=== PATIENT | female | born 1950 | race Caucasian/White ===

== ENCOUNTER → 2016-06-22 | Outpatient (CLI) | payer MEDICARE ==
[2016-06-22 12:51] LABS: Blood Urea Nitrogen 15 mg/dL (7-17); Non-African American GFR(MDRD) >60 (>60 ml/min/1.73 sqM)
== END | disposition home or self-care (01) ==
LOC: LABWHC1 11:25
PROVIDERS: ATTEND Psychiatry & Neurology Neurology
DX: R25.1 Tremor, unspecified (principal)
CPT/HCPCS: 36415; 82565; 84520

== ENCOUNTER → 2016-06-23 | Outpatient (CLI) | payer MEDICARE ==
--- NOTE | 2016-06-23 13:41 | MR ---
MRI of the brain with and without contrast HISTORY: Headaches.T1-weighted sagittal, T2, FLAIR, and diffusion axial, postcontrast T1 axial and co prosper views of the brain are submitted. CONTRAST: 13 mL MultiHance FINDINGS: There is no evidence of acute ischemia. The ventricles, basal cisterns, and sulci overlying the co nvexities are consistent with mild degenerative change.. There is no mass effect or enhancing mass. Craniocervical junction is maintained. Sella turcica has a normal appearance. No evidence of cerebellopontine angle mass.. There is normal e nhancement of the vasculature including the dural venous sinuses. The orbits have a normal appearance. Changes of mild chronic sinusitis noted. Abnormal signal within the tita is noted. Abnormal signal within the nasal ganglia and thalamus sugge stive of tiny lacunar infarctions. Abnormal signal also noted within the external and internal capsul e bilaterally. There is slight irregular morphology of the subcutaneous tissues along the left posterior parietal re gion correlate clinically. May be within the subcutaneous or epidermal structures. Faint enhancement involving the inferior margin of the left frontal lobe as seen on coronal imaging t o be vascular. WHITE MATTER: There is a confluent abnormal signal surrounding the periventricular region. Additionally there are n umerous focal areas of abnormal signal seen throughout the white matter measuring greater than 50. No enhancing lesions. IMPRESSION: 1. No acute intracranial process. 2. Extensive white matter changes which are nonspecific could be seen with extensive remote white mat ter ischemia or demyelinating process. No enhancing lesions. 3. Abnormal signal within the brainstem including the tita suggestive of remote ischemic change. 4. No enhancing mass. 5. There is abnormal signal in the subcutaneous and epidermal structures along the left posterior par ietal region correlate clinically.
== END | disposition home or self-care (01) ==
LOC: RADMRIMAIN 12:37
PROVIDERS: ATTEND Psychiatry & Neurology Neurology
DX: C71.7 Malignant neoplasm of brain stem (principal); R90.82 White matter disease, unspecified; R93.0 Abnormal findings on diagnostic imaging of skull and head, not elsewhere classified
CPT/HCPCS: 70553; A9577

== ENCOUNTER → 2017-01-03 | Outpatient (CLI) | payer MEDICARE ==
--- NOTE | 2017-01-04 09:14 | MM ---
Reason for exam: screening (asymptomatic). Last mammogram was performed 1 year ago. History: Patient is postmenopausal and history of other cancer. Physical Findings: A clinical breast exam by your physician is recommended on an annual basis and results should be correlated with mammographic findings. MG 3D Screening Mammo W/Cad Bilateral CC and MLO view(s) were taken. Prior study comparison: December 31, 2015, bilateral MG 3d screening mammo w/cad. December 03, 2014, bilateral MG screening mammo w CAD. There are scattered fibroglandular densities. No significant changes when compared with prior studies. ASSESSMENT: Benign, BI-RAD 2 RECOMMENDATION: Routine screening mammogram of both breasts in 1 year.
== END | disposition home or self-care (01) ==
LOC: RADMAMWWP 13:09
PROVIDERS: ATTEND Obstetrics & Gynecology
DX: Z12.31 Encounter for screening mammogram for malignant neoplasm of breast (principal)
CPT/HCPCS: 77063; G0202

== ENCOUNTER → 2018-02-11 | Outpatient (CLI) | payer MEDICARE ==
--- NOTE | 2018-02-13 09:34 | MM ---
Reason for exam: screening (asymptomatic). Last mammogram was performed 1 year and 1 month ago. History: Patient is postmenopausal and history of other cancer. Physical Findings: A clinical breast exam by your physician is recommended on an annual basis and results should be correlated with mammographic findings. MG Screening Mammo w CAD Bilateral CC, MLO, and XCCL view(s) were taken. Prior study comparison: January 03, 2017, bilateral MG 3d screening mammo w/cad. December 31, 2015, bilateral MG 3d screening mammo w/cad. No significant changes when compared with prior studies. ASSESSMENT: Benign, BI-RAD 2 RECOMMENDATION: Routine screening mammogram of both breasts in 1 year.
== END | disposition home or self-care (01) ==
LOC: RADMAMWWP 09:41
PROVIDERS: ATTEND Family Medicine
DX: Z12.31 Encounter for screening mammogram for malignant neoplasm of breast (principal)
CPT/HCPCS: 77067

== ENCOUNTER → 2018-05-28 | Outpatient (CLI) | payer MEDICARE ==
--- NOTE | 2018-05-28 13:05 | BD ---
EXAMINATION TYPE: Axial Bone Density DATE OF EXAM: 05/28/2018 COMPARISON: Prior DEXA bone scan March 17, 2016 CLINICAL HISTORY: Postmenopausal female Height: 5 FT 1 IN Weight: 127 FRAX RISK QUESTIONS: History of Fracture in Adulthood: YES Secondary Osteoporosis: Current Tobacco Use: YES RISK FACTORS HISTORY OF: Family History of Osteoporosis: YES Active: YES Postmenopausal woman: AGE 48 Take estrogen and/or progesterone medications: VERY SHORT TIME MEDICATIONS: Additional Medications: ANXIETY MEDS, VIT D, Additional History: EXAM MEASUREMENTS: Bone mineral densitometry was performed using the [employer] System. Bone mineral density as measured about the Lumbar spine is: ----- L1-L4(G/cm2): 0.915 T Score Values are as follows: ----- L2: -2.9 ----- L3: -2.3 ----- L4: -1.0 ----- L1-L4: -2.2 Bone mineral density has: INCREASED 2.0 % since study of: 2015 Bone mineral density about the R hip (g/cm2): 0.781 Bone mineral density about the L hip (g/cm2): 0.754 T Score values are as follows: -----R Neck: -1.8 -----L Neck: -2.0 -----R Total: -1.6 -----L Total: -1.9 Bone mineral density has: DECREASED -5.9 % since study of: 2015 IMPRESSION: Osteopenia (T Score between -2.5 and -1) redemonstrated in low back and both hips. There remains slightly increased risk of fracture and the patient may be considered for treatment. Re-Screen 2-5 years. NOTE: T-SCORE=SD OF THE YOUNG ADULT MEAN.
== END | disposition home or self-care (01) ==
LOC: RADBDWWP 12:35
PROVIDERS: ATTEND Obstetrics & Gynecology
DX: M85.88 Other specified disorders of bone density and structure, other site (principal); M85.852 Other specified disorders of bone density and structure, left thigh; M85.851 Other specified disorders of bone density and structure, right thigh
CPT/HCPCS: 77080

== ENCOUNTER → 2019-02-28 | Outpatient (CLI) | payer MEDICARE ==
--- NOTE | 2019-03-04 09:53 | MM ---
Reason for exam: screening (asymptomatic). Last mammogram was performed 1 year and 1 month ago. History: Patient is postmenopausal and history of other cancer. Physical Findings: A clinical breast exam by your physician is recommended on an annual basis and results should be correlated with mammographic findings. MG 3D Screening Mammo W/Cad Bilateral CC, MLO, and XCCL view(s) were taken. Prior study comparison: February 11, 2018, bilateral MG screening mammo w CAD. January 03, 2017, bilateral MG 3d screening mammo w/cad. There are scattered fibroglandular densities. There are benign appearing round calcifications in the right breast. There is no discrete abnormality. Large overlying skin lesion bilaterally redemonstrated posteriorly. ASSESSMENT: Benign, BI-RAD 2 RECOMMENDATION: Routine screening mammogram of both breasts in 1 year.
== END | disposition home or self-care (01) ==
LOC: RADMAMWWP 10:46
PROVIDERS: ATTEND Family Medicine
DX: Z12.31 Encounter for screening mammogram for malignant neoplasm of breast (principal)
CPT/HCPCS: 77063; 77067

== ENCOUNTER 2019-06-01 11:04 | Inpatient (IN) | payer MEDICARE ==
[2019-06-01] MEDS ORDERED: SODIUM CHLORIDE 0.9% 1,000 ML IV STA (11:49)
[2019-06-01] MEDS ORDERED: PANTOPRAZOLE 40 MG/10 ML VIAL IVP STA (11:49)
[2019-06-01] MEDS ORDERED: DICYCLOMINE 10 MG/ML 2 ML AMP IM STA (11:49)
[2019-06-01] MEDS ORDERED: ONDANSETRON 4 MG/2 ML VIAL IVP STA (11:49)
--- NOTE | 2019-06-01 11:52 | ED ---
Abdominal Pain HPI - General Chief Complaint: Abdominal Pain Stated Complaint: NVD, unable to urinate Time Seen by Provider: 06/01/19 11:19 Source: patient Mode of arrival: ambulatory Limitations: no limitations - History of Present Illness Initial Comments: Patient is a 68-year-old female presenting to the emergency department with a chief complaint of nausea vomiting diarrhea and abdominal pain. Patient reports the symptoms began yesterday initially started with some nausea followed by multiple episodes of nonbilious , nonbloody vomiting. She also reports a little bit of nonbloody diarrhea. She states there is a cramping like pain in the righ t lower quadrant and midline suprapubic region. She reports the pain is not related to oral intake. Patient has a history of cholecystectomy. She does report chills but no fevers. She states that she has been unable to urinate. Denies any urinary or vaginal symptoms. Denies hematuria, hematochezia or melena. Denies chest pain or shortness of breath. - Related Data Home Medications Medication Instructions Recorded Confirmed Biotin 10,000 mcg PO DAILY 06/01/19 06/01/19 Ergocalciferol (Vitamin D2) 50,000 unit PO Q14D 06/01/19 06/01/19 [Drisdol] LORazepam [Ativan] 0.5 mg PO TID PRN 06/01/19 06/01/19 busPIRone HCl [Buspar] 5 mg PO BID 06/01/19 06/01/19 Allergies Allergy/AdvReac Type Severity Reaction Status Date / Time No Known Allergies Allergy Verified 06/01/19 15:07 Review of Systems ROS Statement: Those systems with pertinent positive or pertinent negative responses have been documented in the HPI. ROS Other: All systems not noted in ROS Statement are negative. Past Medical History Past Medical History: No Reported History History of Any Multi-Drug Resistant Organisms: None Reported Past Surgical History: Cholecystectomy, Tubal Ligation Additional Past Surgical History / Comment(s): VOCAL CORD STRIPPING (POLYPS). COLONOSCOPY Past Anesthesia/Blood Transfusion Reactions: Motion Sickness Past Psychological History: Anxiety, Depression Smoking Status: Current every day smoker Past Alcohol Use History: Occasional Past Drug Use History: None Reported - Past Family History Sister(s) Family Medical History: Cancer Additional Family Medical History / Comment(s): THROAT CA Brother(s) Family Medical History: Cancer Additional Family Medical History / Comment(s): LYMPHOMA General Exam Limitations: no limitations General appearance: alert, in no apparent distress Head exam: Present: atraumatic, normocephalic, normal inspection Eye exam: Present: normal appearance, PERRL, EOMI Pupils: Present: normal accommodation ENT exam: Present: normal exam, normal oropharynx, mucous membranes moist, TM's normal bilaterally, normal external ear exam Neck exam: Present: normal inspection, full ROM Respiratory exam: Present: normal lung sounds bilaterally Cardiovascular Exam: Present: regular rate, normal rhythm, normal heart sounds GI/Abdominal exam: Present: soft, tenderness (Right lower quadrant. Positive McBurney point tenderness. Negative Rovsing, negative obturator, negative ps oas. Midline suprapubic tenderness.), normal bowel sounds. Absent: distended, guarding, rebound, rigid Extremities exam: Present: normal inspection, full ROM Back exam: Present: normal inspection, full ROM Neurological exam: Present: alert, oriented X3 Psychiatric exam: Present: normal affect, normal mood Skin exam: Present: warm, dry, intact, normal color, rash (Underlying skin condition on the back.) Course Vital Signs 06/01/19 06/01/19 06/01/19 11:13 13:00 14:30 Temperature 98.1 F Pulse Rate 107 H 98 Respiratory 18 18 18 Rate Blood Pressure 133/64 163/75 173/80 O2 Sat by Pulse 99 100 99 Oximetry Medical Decision Making - Medical Decision Making Patient is a 68-year-old female presenting to emergency Department with a chief complaint of sudden onset of nausea vomiting and abdominal pain. On exam patient has right lower quadrant tenderness with a positive McBurney point. No other signs of appendicitis. CBC shows mild leukocytosis. UA shows ketones most likely due to dehydration from repetitive vomiting. CT of abdomen and pel vis shows a small bowel obstruction secondary to a direct inguinal hernia. Patient was discussed with Dr. Avendano who will admit the patient and go straight to the OR. Patient nothing by mouth. Patient will be admitted. Case discussed with physician. - Lab Data Result diagrams: 06/01/19 12:05 06/01/19 12:05 Lab Results 06/01/19 06/01/19 06/01/19 Range/Units 11:52 12:05 12:05 WBC 12.2 H (3.8-10.6) k/uL RBC 4.66 (3.80-5.40) m/uL Hgb 14.5 (11.4-16.0) gm/dL Hct 43.4 (34.0-46.0) % MCV 93.1 (80.0-100.0) fL MCH 31.1 (25.0-35.0) pg MCHC 33.4 (31.0-37.0) g/dL RDW 12.3 (11.5-15.5) % Plt Count 296 (150-450) k/uL Neutrophils % 80 % Lymphocytes % 15 % Monocytes % 4 % Eosinophils % 0 % Basophils % 0 % Neutrophils # 9.8 H (1.3-7.7) k/uL Lymphocytes # 1.8 (1.0-4.8) k/uL Monocytes # 0.5 (0-1.0) k/uL Eosinophils # 0.0 (0-0.7) k/uL Basophils # 0.0 (0-0.2) k/uL PT (9.0-12.0) sec INR (<1.2) APTT (22.0-30.0) sec Sodium 138 (137-145) mmol/L Potassium 4.4 (3.5-5.1) mmol/L Chloride 102 (98-107) mmol/L Carbon Dioxide 26 (22-30) mmol/L Anion Gap 10 mmol/L BUN 16 (7-17) mg/dL Creatinine 0.69 (0.52-1.04) mg/dL Est GFR (CKD-EPI)AfAm >90 (>60 ml/min/1.73 sqM) Est GFR (CKD-EPI)NonAf 89 (>60 ml/min/1.73 sqM) Glucose 130 H (74-99) mg/dL Calcium 10.0 (8.4-10.2) mg/dL Total Bilirubin 0.8 (0.2-1.3) mg/dL AST 26 (14-36) U/L ALT 19 (4-34) U/L Alkaline Phosphatase 95 (38-126) U/L Total Protein 8.2 (6.3-8.2) g/dL Albumin 4.9 (3.5-5.0) g/dL Amylase 60 (30-110) U/L Lipase 215 (23-300) U/L Urine Color Yellow Urine Appearance Turbid H (Clear) Urine pH 5.5 (5.0-8.0) Ur Specific [place] 1.028 (1.001-1.035) Urine Protein 1+ H (Negative) Urine Glucose (UA) Negative (Negative) Urine Ketones Trace H (Negative) Urine Blood Trace H (Negative) Urine Nitrite Negative (Negative) Urine Bilirubin Negative (Negative) Urine Urobilinogen <2.0 (<2.0) mg/dL Ur Leukocyte Esterase Negative (Negative) Urine RBC 1 (0-5) /hpf Urine WBC 4 (0-5) /hpf Ur Squamous Epith Cells 4 (0-4) /hpf Urine Bacteria Rare H (None) /hpf Urine Mucus Many H (None) /hpf Urine Yeast (Budding) Rare H (None) /hpf 06/01/19 Range/Units 12:05 WBC (3.8-10.6) k/uL RBC (3.80-5.40) m/uL Hgb (11.4-16.0) gm/dL Hct (34.0-46.0) % MCV (80.0-100.0) fL MCH (25.0-35.0) pg MCHC (31.0-37.0) g/dL RDW (11.5-15.5) % Plt Count (150-450) k/uL Neutrophils % % Lymphocytes % % Monocytes % % Eosinophils % % Basophils % % Neutrophils # (1.3-7.7) k/uL Lymphocytes # (1.0-4.8) k/uL Monocytes # (0-1.0) k/uL Eosinophils # (0-0.7) k/uL Basophils # (0-0.2) k/uL PT 9.8 (9.0-12.0) sec INR 0.9 (<1.2) APTT 25.1 (22.0-30.0) sec Sodium (137-145) mmol/L Potassium (3.5-5.1) mmol/L Chloride (98-107) mmol/L Carbon Dioxide (22-30) mmol/L Anion Gap mmol/L BUN (7-17) mg/dL Creatinine (0.52-1.04) mg/dL Est GFR (CKD-EPI)AfAm (>60 ml/min/1.73 sqM) Est GFR (CKD-EPI)NonAf (>60 ml/min/1.73 sqM) Glucose (74-99) mg/dL Calcium (8.4-10.2) mg/dL Total Bilirubin (0.2-1.3) mg/dL AST (14-36) U/L ALT (4-34) U/L Alkaline Phosphatase (38-126) U/L Total Protein (6.3-8.2) g/dL Albumin (3.5-5.0) g/dL Amylase (30-110) U/L Lipase (23-300) U/L Urine Color Urine Appearance (Clear) Urine pH (5.0-8.0) Ur Specific [place] (1.001-1.035) Urine Protein (Negative) Urine Glucose (UA) (Negative) Urine Ketones (Negative) Urine Blood (Negative) Urine Nitrite (Negative) Urine Bilirubin (Negative) Urine Urobilinogen (<2.0) mg/dL Ur Leukocyte Esterase (Negative) Urine RBC (0-5) /hpf Urine WBC (0-5) /hpf Ur Squamous Epith Cells (0-4) /hpf Urine Bacteria (None) /hpf Urine Mucus (None) /hpf Urine Yeast (Budding) (None) /hpf Disposition Clinical Impression: Small bowel obstruction Disposition: ADMITTED IP TO THIS [facility] Condition: Stable Additional Instructions: Patient will be admitted Is patient prescribed a controlled substance at d/c from ED?: No Referrals: Diomedes Stokes DO [Primary Care Provider] - 1-2 days Time of Disposition: 16:03
[2019-06-01 12:21] LABS: Basophils % (A) 0 %; Eosinophils % (A) 0 %; HCT 43.4 % (34.0-46.0); HGB 14.5 gm/dL (11.4-16.0); Lymphocytes # (A) 1.8 k/uL (1.0-4.8); Lymphocytes % (A) 15 %; MCH 31.1 pg (25.0-35.0); MCHC 33.4 g/dL (31.0-37.0); MCV 93.1 fL (80.0-100.0); Monocytes # (A) 0.5 k/uL (0-1.0); Monocytes % (A) 4 %; Neutrophils # (A) 9.8 k/uL (1.3-7.7); Neutrophils % (A) 80 %; Platelet Count 296 k/uL (150-450); RBC 4.66 m/uL (3.80-5.40); RDW 12.3 % (11.5-15.5); WBC 12.2 k/uL (3.8-10.6)
[2019-06-01 12:24] LABS: Appearance,Urine Turbid (Clear); Bacteria,Urine Rare /hpf; Bilirubin,Urine Negative (Negative); Blood,Urine Trace (Negative); Budding Yeast,Urine Rare /hpf; Color,Urine Yellow; Glucose,Urine (UA) Negative (Negative); Ketones,Urine Trace (Negative); Leukocyte Esterase,Urine Negative (Negative); Mucus,Urine Many /hpf; Nitrite,Urine Negative (Negative); PH, Urine 5.5 (5.0-8.0); Protein,Urine 1+ (Negative); RBC,Urine 1 /hpf (0-5); Specific Gravity,Urine 1.028 (1.001-1.035); Squamous Epithelial Cell,Urine 4 /hpf (0-4); Urobilinogen,Urine <2.0 mg/dL (<2.0); WBC,Urine 4 /hpf (0-5)
[2019-06-01 12:29] LABS: ALT 19 U/L (4-34); AST 26 U/L (14-36); African American GFR (CKD) >90 (>60 ml/min/1.73 sqM); Albumin 4.9 g/dL (3.5-5.0); Alkaline Phosphatase 95 U/L (38-126); Amylase 60 U/L (30-110); Anion Gap 10 mmol/L; Blood Urea Nitrogen 16 mg/dL (7-17); Carbon Dioxide 26 mmol/L (22-30); Chloride 102 mmol/L (98-107); Glucose 130 mg/dL (74-99); Non-African American GFR(CKD) 89 (>60 ml/min/1.73 sqM); Potassium 4.4 mmol/L (3.5-5.1); Sodium 138 mmol/L (137-145); Total Bilirubin 0.8 mg/dL (0.2-1.3); Total Protein 8.2 g/dL (6.3-8.2)
--- NOTE | 2019-06-01 12:32 | XR ---
EXAMINATION TYPE: XR KUB , 2 VIEWS DATE OF EXAM ORDERED: 06/01/2019 HISTORY: abdominal pain. COMPARISON: None. FINDINGS: There is been a previous cholecystectomy. Lung bases are clear. Within the abdomen, the abdominal gas pattern is normal. There is no evidence of obstruction or free air. No unusual calcifications are seen. IMPRESSION: NO ACUTE INTRA-ABDOMINAL ABNORMALITY.
[2019-06-01] MEDS ORDERED: METOCLOPRAMIDE 5 MG/ML 2 ML VIAL IVP STA (13:46)
[2019-06-01] MEDS ORDERED: diphenhydrAMINE 50 MG/ML 1 ML VIAL IVP STA (13:46)
--- NOTE | 2019-06-01 14:05 | CT ---
EXAMINATION TYPE: CT abdomen pelvis w con DATE OF EXAM: 06/01/2019 REFERENCE: Previous study dated 12/17/2015. HISTORY: abd pain, rlq and mid suprapubic CT DLP: 745.5 mGy Automated exposure control for dose reduction was used. TECHNIQUE: Helical acquisition through the abdomen and pelvis was obtained without oral contrast and following intravenous administration of 100 mL of Isovue 370. The data was reformatted in axial, dorothy nal and sagittal projections. FINDINGS: There is minimal dependent atelectasis in the dependent portion of the lungs. There is no pleural or pericardial fluid. Heart size is upper limits of normal. There is a small, sliding hiatal hernia. Within the abdomen, the gallbladder is been removed. There is mild central biliary dilatation. There is a common bile duct measures 9.5 mm. The spleen is unremarkable. Both adrenal glands are normal. Both kidneys demonstrate function and appear morphologically normal. The pancreas is unremarkable. There is no significant retroperitoneal, iliac or inguinal adenopathy. The uterus is unremarkable. The ovaries are not visualized with certainty. The bladder is not distend ed. There is no significant diverticular change and there is no radiographic evidence of diverticulitis. The transverse colon is collapsed as well as the ascending colon. This makes assessment of abdominal wall thickening difficult. There are dilated loops of jejunum and ileum without a definite transition point. This may be seconda ry to direct inguinal hernia on the right containing small bowel which is mildly dilated. Proximal to this there are dilated loops. No definite loops are seen distal to this. There is no free air. There is no significant free fluid. There is degenerative disc disease and hypertrophic spondylosis at L3-4 and L4-5. IMPRESSION: 1. DISTAL SMALL BOWEL OBSTRUCTION, LIKELY DUE TO A DIRECT INGUINAL HERNIA ON THE RIGHT CONTAINING A S MALL AMOUNT OF DILATED SMALL BOWEL. 2. SMALL SLIDING HIATAL HERNIA. 3. MILD CENTRAL BILIARY DILATATION POSTCHOLECYSTECTOMY. 4. AREAS OF MUCOSAL THICKENING INVOLVING THE ASCENDING AND TRANSVERSE COLONS. PLEASE CORRELATE TO EXC LUDE COLITIS. 5. DEGENERATIVE CHANGES WITHIN THE SPINE.
[2019-06-01 15:09] LABS: INR 0.9 (<1.2); Partial Thromboplastin Time 25.1 sec (22.0-30.0); Prothrombin Time 9.8 sec (9.0-12.0)
[2019-06-01] MEDS ORDERED: MORPHINE SULFATE 4 MG/ML SYRINGE IV PRN (16:03)
[2019-06-01] MEDS ORDERED: PROMETHAZINE 25 MG TAB PO PRN (16:03)
[2019-06-01] MEDS ORDERED: HYDROmorphone 0.5 MG/0.5 ML SYRINGE IVP PRN (16:03)
[2019-06-01] MEDS ORDERED: ALPRAZolam 0.25 MG TAB PO PRN (16:03)
[2019-06-01] MEDS ORDERED: NALOXONE 0.4 MG/ML 1 ML VIAL IV PRN ×2 (16:03→20:52)
[2019-06-01] MEDS: SODIUM CHLORIDE 0.9% 1,000 ML IV SCH (16:44)
[2019-06-01] MEDS ORDERED: fentaNYL (PF) 50 MCG/ML 2 ML AMP IV PRN (19:41)
--- NOTE | 2019-06-01 19:41 | P.GSHP ---
History of Present Illness H&P Date: 06/01/19 Chief Complaint: incarcerated right femoral hernia 68-year-old female presents to the hospital complaining of nausea vomiting bloating and crampy abdominal pain. Symptoms began yesterday however patient states she has episodes like this periodically. Some urinary retention. Cramping has improved throughout the day. Describes more discomfort in the right lower quadrant and suprapubic region. States she had her gallbladder out in the past because of frequent nausea. No rectal bleeding. Patient had a CAT scan performed which showed incarcerated right femoral hernia causing obstruction. Labs reveal mild leukocytosis. - Review of Systems Comment: The patient denies any acute changes in vision or hearing, no dysphagia or o dynophagia, no chest pain or shortness of breath, no dysuria or hematuria, no headache, no runny nose, no rectal bleeding or melena, no unexplained weight loss Past Medical History Past Medical History: No Reported History History of Any Multi-Drug Resistant Organisms: None Reported Past Surgical History: Cholecystectomy, Tubal Ligation Additional Past Surgical History / Comment(s): VOCAL CORD STRIPPING (POLYPS). COLONOSCOPY Past Anesthesia/Blood Transfusion Reactions: Motion Sickness Past Psychological History: Anxiety, Depression Smoking Status: Current every day smoker Past Alcohol Use History: Occasional Additional Past Alcohol Use History / Comment(s): SMOKES 1 PPD SINCE AGE 13 Past Drug Use History: None Reported - Past Family History Sister(s) Family Medical History: Cancer Additional Family Medical History / Comment(s): THROAT CA Brother(s) Family Medical History: Cancer Additional Family Medical History / Comment(s): LYMPHOMA Medications and Allergies Home Medications Medication Instructions Recorded Confirmed Type Biotin 10,000 mcg PO DAILY 06/01/19 06/01/19 History Ergocalciferol (Vitamin D2) 50,000 unit PO Q14D 06/01/19 06/01/19 History [Drisdol] LORazepam [Ativan] 0.5 mg PO TID PRN 06/01/19 06/01/19 History busPIRone HCl [Buspar] 5 mg PO BID 06/01/19 06/01/19 History Allergies Allergy/AdvReac Type Severity Reaction Status Date / Time No Known Allergies Allergy Verified 06/01/19 15:07 Surgical - Exam Vital Signs Temp Pulse Resp BP Pulse Ox 98.1 F 107 H 18 133/64 99 06/01/19 11:13 06/01/19 11:13 06/01/19 11:13 06/01/19 11:13 06/01/19 11:13 Physical exam: General: Well-developed, well-nourished HEENT: Normocephalic, sclerae nonicteric Abdomen: Nontender, fullness right groin Extremities: No edema Neuro: Alert and oriented Results - Labs 06/01/19 12:05 06/01/19 12:05 Abnormal Lab Results - Last 24 Hours (Table) 06/01/19 06/01/19 06/01/19 Range/Units 11:52 12:05 12:05 WBC 12.2 H (3.8-10.6) k/uL Neutrophils # 9.8 H (1.3-7.7) k/uL Glucose 130 H (74-99) mg/dL Urine Appearance Turbid H (Clear) Urine Protein 1+ H (Negative) Urine Ketones Trace H (Negative) Urine Blood Trace H (Negative) Urine Bacteria Rare H (None) /hpf Urine Mucus Many H (None) /hpf Urine Yeast (Budding) Rare H (None) /hpf Diabetes panel 06/01/19 Range/Units 12:05 Sodium 138 (137-145) mmol/L Potassium 4.4 (3.5-5.1) mmol/L Chloride 102 (98-107) mmol/L Carbon Dioxide 26 (22-30) mmol/L BUN 16 (7-17) mg/dL Creatinine 0.69 (0.52-1.04) mg/dL Glucose 130 H (74-99) mg/dL Calcium 10.0 (8.4-10.2) mg/dL AST 26 (14-36) U/L ALT 19 (4-34) U/L Alkaline Phosphatase 95 (38-126) U/L Total Protein 8.2 (6.3-8.2) g/dL Albumin 4.9 (3.5-5.0) g/dL Calcium panel 06/01/19 Range/Units 12:05 Calcium 10.0 (8.4-10.2) mg/dL Albumin 4.9 (3.5-5.0) g/dL Pituitary panel 06/01/19 Range/Units 12:05 Sodium 138 (137-145) mmol/L Potassium 4.4 (3.5-5.1) mmol/L Chloride 102 (98-107) mmol/L Carbon Dioxide 26 (22-30) mmol/L BUN 16 (7-17) mg/dL Creatinine 0.69 (0.52-1.04) mg/dL Glucose 130 H (74-99) mg/dL Calcium 10.0 (8.4-10.2) mg/dL Adrenal panel 06/01/19 Range/Units 12:05 Sodium 138 (137-145) mmol/L Potassium 4.4 (3.5-5.1) mmol/L Chloride 102 (98-107) mmol/L Carbon Dioxide 26 (22-30) mmol/L BUN 16 (7-17) mg/dL Creatinine 0.69 (0.52-1.04) mg/dL Glucose 130 H (74-99) mg/dL Calcium 10.0 (8.4-10.2) mg/dL Total Bilirubin 0.8 (0.2-1.3) mg/dL AST 26 (14-36) U/L ALT 19 (4-34) U/L Alkaline Phosphatase 95 (38-126) U/L Total Protein 8.2 (6.3-8.2) g/dL Albumin 4.9 (3.5-5.0) g/dL Assessment and Plan (1) Incarcerated femoral hernia Narrative/Plan: clinical scenario discussed in detail with the patient and her daughters. The CAT scan films were actually shown to them. Patient has an incarcerated femoral hernia. I suspect the bowel his likely reduced itself during her hospital stay already. We'll proceed with repair incarcerated femoral hernia at this time. Likely will utilize mesh with this repair. Risks of bleeding, infection, recurrence, bladder and bowel injury, numbness, nerve injury, seroma were discussed with the patient. The patient understands and wishes to proceed. Current Visit: Yes Status: Acute Code(s): K41.30 - UNIL FEMORAL HERNIA, W OBST, W/O GANGRENE, NOT SPCF RECUR SNOMED Code(s): 229330695
[2019-06-01] MEDS ORDERED: LACTATED RINGERS 1,000 ML IV SCH (19:45)
[2019-06-01] MEDS ORDERED: LACTATED RINGERS 1,000 ML IV ONE (19:53)
[2019-06-01] MEDS ORDERED: MIDAZOLAM 2 MG/2 ML VIAL ONE (19:53)
[2019-06-01] MEDS ORDERED: ONDANSETRON 4 MG/2 ML VIAL ONE (19:53)
[2019-06-01] MEDS ORDERED: fentaNYL (PF) 50 MCG/ML 2 ML AMP ONE (19:53)
[2019-06-01] MEDS ORDERED: PROPOFOL 10 MG/ML 20 ML VIAL IV ONE (19:53)
[2019-06-01] MEDS ORDERED: ceFAZolin 1,000 MG VIAL IV ONE (20:08)
[2019-06-01] MEDS ORDERED: BUPIVACAINE (PF) 0.25% 30 ML VIAL SQ ONE ×2 (20:22)
[2019-06-01] MEDS ORDERED: ONDANSETRON 4 MG/2 ML VIAL IVP PRN (20:52)
--- NOTE | 2019-06-01 20:56 | P.OP ---
Date of Procedure: 06/01/19 Procedure(s) Performed: PREOPERATIVE DIAGNOSIS: right incarcerated femoral hernia POSTOPERATIVE DIAGNOSIS: right femoral hernia PROCEDURE: repair right femoral hernia with mesh SURGEON: Smiley EBL: Minimal ANESTHESIA: General COMPLICATIONS: None OPERATIVE PROCEDURE: Patient was placed in the operating table in the supine position and placed under general anesthesia. An oblique incision was made in the right groin. Dissection down through the subcutaneous tissues took place using electrocautery. The external oblique fascia was identified. The expected location of the femoral canal was then inspected. There appeared initially to be lymphatics there without obvious hernia. At that time I opened the external oblique aponeurosis. I inspected for a indirect or direct inguinal hernia and none were seen. This was then closed using a running 2-0 Vicryl stitch. I reexamined the femoral canal region. There was a indurated piece of fat there that initially was thought to represent a lymph node that was mildly inflamed. As I dissected that area I did identify a hernia sac that was able to be reduced back into the preperitoneal space. A portion of the excess tissue surrounding the outside of the sac was sent off to pathology labeled hernia sac although the true sac had been already reduced. I then rolled a one-inch by four-inch piece of Prolene mesh into a small cylinder shape. This was sutured using a 0 Ethibond. This was then placed in the femoral canal and sutured anteriorly to t he inguinal ligament posteriorly to Cecil's ligament and medially as well to the pectineus fascia. This adequately closed the space. The subcutaneous tissues were then reapproximated using 3-0 Vicryl sutures. The skin was closed using 4-0 Monocryl sutures. skin glue and sterile dressings were then applied. DISPOSITION: Stable to recovery room
[2019-06-01] MEDS ORDERED: HYDROcodone/APAP 5-325MG 1 EACH TAB PO PRN (21:00)
[2019-06-01] MEDS: FAMOTIDINE 20 MG TAB PO SCH (22:02)
[2019-06-01] MEDS: HEPARIN SODIUM,PORCINE 5,000 UNIT/ML 1 ML VIAL SQ SCH (23:02)
[2019-06-02] MEDS: FAMOTIDINE 20 MG TAB PO SCH (07:29)
[2019-06-02] MEDS: HEPARIN SODIUM,PORCINE 5,000 UNIT/ML 1 ML VIAL SQ SCH (07:29)
[2019-06-02] MEDS: SODIUM CHLORIDE 0.9% 1,000 ML IV SCH (07:30)
[2019-06-02 07:33] VITALS: BP 127/61; PULSE 75; RESP 16; TEMP 98
[2019-06-02] MEDS ORDERED: busPIRone HCl 5 MG TAB PO SCH (11:15)
[2019-06-02] MEDS ORDERED: NICOTINE 21MG/24HR PATCH TRANSDERM SCH (11:15)
--- NOTE | 2019-06-02 11:29 | P.DS ---
<MitchellFemiTheresa A - Last Filed: 06/02/19 11:27> Providers Expected date of discharge: 06/02/19 Hospital Course: 68-year-old female who underwent repair of right femoral hernia with mesh secondary to right incarcerated femoral hernia with Dr. Resi. Patient is doing well postoperatively without any immediate complications. She is tolerating diet without nausea or vomiting. Pain is controlled on oral medications. Vital signs are stable. She is stable for discharge home today. Please see EMR for further hospital course details. Discharge diagnosis 1. Right incarcerated femoral hernia, status post repair of right femoral hernia with mesh Nurse practitioner note has been reviewed by physician. Signing provider agrees with the documented findings, assessment, and plan of care. Patient Condition at Discharge: Stable Plan - Discharge Summary Discharge Rx Participant: Yes New Discharge Prescriptions: New Hydrocodone/Acetaminophen [[place] 5-325] 1 tab PO Q6HR PRN 3 Days #12 tab PRN Reason: Pain No Action busPIRone HCl [Buspar] 5 mg PO BID LORazepam [Ativan] 0.5 mg PO TID PRN PRN Reason: Anxiety Biotin 10,000 mcg PO DAILY Ergocalciferol (Vitamin D2) [Drisdol] 50,000 unit PO Q14D Discharge Medication List Biotin 10,000 mcg PO DAILY 06/01/19 [History] Ergocalciferol (Vitamin D2) [Drisdol] 50,000 unit PO Q14D 06/01/19 [History] LORazepam [Ativan] 0.5 mg PO TID PRN 06/01/19 [History] busPIRone HCl [Buspar] 5 mg PO BID 06/01/19 [History] Hydrocodone/Acetaminophen [Walker 5-325] 1 tab PO Q6HR PRN 3 Days #12 tab 06/02/19 [Rx] Follow up Appointment(s)/Referral(s): Sean Reis MD [Medical Doctor] - 06/09/19 2:40 pm Diomedes Stokes DO [Primary Care Provider] - 06/05/19 3:30 pm Patient Instructions/Handouts: Bowel Obstruction (DC), Incisional Hernia (DC) Activity/Diet/Wound Care/Special Instructions: No driving while taking Walker No lifting over 10 pounds You may shower. No soaking or tub baths Very light activity until you are reevaluated at your follow up appointment with your surgeon <Sean eRis - Last Filed: 06/02/19 12:45> Providers Date of admission: 06/01/19 15:54 Attending physician: Sean Reis Consults: 06/01/19 20:52 Consult Physician Routine Consulting Provider: Dk Manley Consult Reason/Comments: medical management Do you want consulting provider notified?: Yes Primary care physician: Diomedes Stokes - Discharge Diagnosis(es) (1) Incarcerated femoral hernia Current Visit: Yes Status: Acute Hospital Course: as above. Patient doing well today. May discharge. Follow-up one week.
== END 2019-06-02 13:48 | disposition home or self-care (01) | DRG 352 ==
LOC: EC 11:04 → 4SSUR 15:54
PROVIDERS: ADMIT Surgery; ATTEND Surgery
PROC: 0YU70JZ Supplement Right Femoral Region with Synthetic Substitute, Open Approach (ICD-10-PCS; principal; 2019-06-01 17:36)
DX: K41.30 Unilateral femoral hernia, with obstruction, without gangrene, not specified as recurrent (principal); J38.3 Other diseases of vocal cords; F32.9 Major depressive disorder, single episode, unspecified; F41.9 Anxiety disorder, unspecified; F17.200 Nicotine dependence, unspecified, uncomplicated; E86.0 Dehydration; Z90.49 Acquired absence of other specified parts of digestive tract; Z79.899 Other long term (current) drug therapy; Z98.51 Tubal ligation status; Z80.7 Family history of other malignant neoplasms of lymphoid, hematopoietic and related tissues; Z80.8 Family history of malignant neoplasm of other organs or systems
CPT/HCPCS: 36415; 74018; 74177; 80053; 81001; 82150; 83690; 85025; 85610; 85730; 88302; 96361; 96372; 96374; 96375; 99285

== ENCOUNTER 2019-10-23 12:38 | Inpatient (IN) | payer MEDICARE ==
--- NOTE | 2019-10-23 13:24 | ED ---
General Adult HPI - General Chief complaint: Psychiatric Symptoms Stated complaint: EPS eval Time Seen by Provider: 10/23/19 13:00 Source: patient, family, RN notes reviewed, old records reviewed Mode of arrival: ambulatory Limitations: no limitations - History of Present Illness Initial comments: 69-year-old female patient past history significant for anxiety presents to ED with anxiety with daughter. Patient reports that for the last year she has been extremely anxious. She hasn't seen by her primary care provider has tried numerous medications most recently Paxil. Patient's daughter reports that this is not working and the patient still very uncomfortable and states that she needs EPS evaluation. Patient denies any suicidal or homicidal ideations. Systemic: Pt denies fatigue, fever/chills, rash. Pt denies weakness, night sweats, weight loss. Neuro: Pt denies headache, visual disturbances, syncope or pre-syncope. HEENT: Pt denies ocular discharge or irritation, otalgia, rhinorrhea, pharyngitis or notable lymphadenopathy. Cardiopulmonary: Pt denies chest pain, SOB, heart palpitations, dyspnea on exertion. Abdominal/GI: Pt denies abdominal pain, n/v/d. : Pt denies dysuria, burning w/ urination, frequency/urgency. Denies new onset urinary or bowel incontinence. MSK: Pt denies myalgia, loss of strength or function in extremities. Neuro: Pt denies new onset weakness, paresthesias. - Related Data Home Medications Medication Instructions Recorded Confirmed Biotin 10,000 mcg PO DAILY 06/01/19 06/01/19 Ergocalciferol (Vitamin D2) 50,000 unit PO Q14D 06/01/19 06/01/19 [Drisdol] LORazepam [Ativan] 0.5 mg PO TID PRN 06/01/19 06/01/19 busPIRone HCl [Buspar] 5 mg PO BID 06/01/19 06/01/19 Previous Rx's Medication Instructions Recorded Hydrocodone/Acetaminophen [[place] 1 tab PO Q6HR PRN 3 Days #12 tab 06/02/19 5-325] Allergies Allergy/AdvReac Type Severity Reaction Status Date / Time No Known Allergies Allergy Verified 10/23/19 12:53 Review of Systems ROS Statement: Those systems with pertinent positive or pertinent negative responses have been documented in the HPI. ROS Other: All systems not noted in ROS Statement are negative. Past Medical History Past Medical History: No Reported History History of Any Multi-Drug Resistant Organisms: None Reported Past Surgical History: Cholecystectomy, Tubal Ligation Additional Past Surgical History / Comment(s): VOCAL CORD STRIPPING (POLYPS). COLONOSCOPY Past Anesthesia/Blood Transfusion Reactions: Motion Sickness Past Psychological History: Anxiety, Depression Smoking Status: Current every day smoker Past Alcohol Use History: Occasional Past Drug Use History: None Reported - Past Family History Sister(s) Family Medical History: Cancer Additional Family Medical History / Comment(s): THROAT CA Brother(s) Family Medical History: Cancer Additional Family Medical History / Comment(s): LYMPHOMA General Exam - General Exam Comments Initial Comments: Constitutional: NAD, AOX3, Pt has pleasant affect. HEENT: NC/AT, trachea midline, neck supple, no lymphadenopathy. Posterior pharynx non erythematous, without exudates. External ears appear normal, without discharge. Mucous membranes moist. Eyes PERRLA, EOM intact. There is no scleral icterus. No pallor noted. Cardiopulmonary: RRR, no murmurs, rubs or gallops, no JVD noted. Lungs CTAB in anterior and posterior mackay. No peripheral edema. Neuro: CN II-XII grossly intact. No nuchal rigidity. No raccon eyes, no madrigal sign. MSK: . Full active ROM in upper and lower extremities. Limitations: no limitations Course Vital Signs 10/23/19 12:49 Temperature 98.4 F Pulse Rate 74 Respiratory 18 Rate Blood Pressure 129/76 O2 Sat by Pulse 99 Oximetry Medical Decision Making - Medical Decision Making 69-year-old female patient past history significant for anxiety presents to ED with anxiety with daughter. Patient reports that for the last year she has been extremely anxious. She hasn't seen by her primary care provider has tried numerous medications most recently Paxil. Patient's daughter reports that this is not working and the patient still very uncomfortable and states that she needs EPS evaluation. Patient denies any suicidal or homicidal ideations. Patient vital signs are stable, afebrile. Physical exam then acute pathology. Patient was evaluated by emergency psychiatric services who recommended admission. - Lab Data Lab Results 10/23/19 Range/Units 13:56 Urine Opiates Screen Not Detected (NotDetected) Ur Oxycodone Screen Not Detected (NotDetected) Urine Methadone Screen Not Detected (NotDetected) Ur Propoxyphene Screen Not Detected (NotDetected) Ur Barbiturates Screen Not Detected (NotDetected) U Tricyclic Antidepress Not Detected (NotDetected) Ur Phencyclidine Scrn Not Detected (NotDetected) Ur Amphetamines Screen Not Detected (NotDetected) U Methamphetamines Scrn Not Detected (NotDetected) U Benzodiazepines Scrn Not Detected (NotDetected) Urine Cocaine Screen Not Detected (NotDetected) U Marijuana (THC) Screen Not Detected (NotDetected) Disposition Clinical Impression: Acute anxiety Disposition: ADMITTED IP TO THIS [facility] Condition: Serious Is patient prescribed a controlled substance at d/c from ED?: No Referrals: Diomedes Stokes DO [Primary Care Provider] - 1-2 days
[2019-10-23 14:28] LABS: Amphetamine Screen,Urine Not Detected (NotDetected); Barbiturate Screen,Urine Not Detected (NotDetected); Benzodiazepines Screen,Urine Not Detected (NotDetected); Cocaine Screen,Urine Not Detected (NotDetected); Methadone Screen, Urine Not Detected (NotDetected); Opiate Screen,Urine Not Detected (NotDetected); Oxycodone Screen, Urine Not Detected (NotDetected); Phencyclidine Screen,Urine Not Detected (NotDetected); Tricyclic Antidepressant,Urine Not Detected (NotDetected); Urn Cannabinoid Scrn Not Detected (NotDetected)
[2019-10-23] MEDS ORDERED: MAGNESIUM HYDROXIDE 2,400 MG/10 ML CUP PO PRN (17:58)
[2019-10-23] MEDS ORDERED: ZIPRASIDONE 20 MG VIAL IM PRN (17:58)
[2019-10-23] MEDS ORDERED: MAG HYDROX/AL HYDROX/SIMETH 30 ML CUP PO PRN (17:58)
[2019-10-23] MEDS ORDERED: LORazepam 1 MG TAB PO PRN (17:58)
[2019-10-23] MEDS ORDERED: ACETAMINOPHEN TAB 325 MG TAB PO PRN (17:58)
[2019-10-23] MEDS ORDERED: PARoxetine 10 MG TAB PO SCH (21:00)
[2019-10-24 07:02] LABS: ALT 20 U/L (4-34); AST 26 U/L (14-36); African American GFR (CKD) >90 (>60 ml/min/1.73 sqM); Albumin 4.3 g/dL (3.5-5.0); Alkaline Phosphatase 73 U/L (38-126); Anion Gap 7 mmol/L; Blood Urea Nitrogen 14 mg/dL (7-17); Calcium 9.7 mg/dL (8.4-10.2); Carbon Dioxide 29 mmol/L (22-30); Chloride 101 mmol/L (98-107); Glucose 100 mg/dL (74-99); Non-African American GFR(CKD) 83 (>60 ml/min/1.73 sqM); Potassium 4.7 mmol/L (3.5-5.1); Sodium 137 mmol/L (137-145); Total Bilirubin 0.8 mg/dL (0.2-1.3); Total Protein 7.2 g/dL (6.3-8.2)
[2019-10-24] MEDS: VENLAFAXINE HCL ER 37.5 MG CAP PO SCH (12:05)
[2019-10-24] MEDS ORDERED: NICOTINE POLACRILEX 2 MG GUM BUCCAL PRN (12:06)
--- NOTE | 2019-10-24 12:07 | P.HP ---
Psychiatric H&P - . H&P Date: 10/24/19 History & Physical: Allergies Allergy/AdvReac Type Severity Reaction Status Date / Time No Known Allergies Allergy Verified 10/23/19 18:40 Vital Signs Temp 98.1 F 10/24/19 05:09 Pulse 100 10/24/19 05:09 Resp 16 10/24/19 05:09 BP 132/80 10/24/19 05:09 Pulse Ox 99 10/24/19 05:09 Intake & Output 10/23/19 10/24/19 10/24/19 18:59 06:59 18:59 Weight 54.431 kg 55.1 kg Laboratory Last Values Sodium 137 mmol/L (137-145) 10/24/19 06:28 Potassium 4.7 mmol/L (3.5-5.1) 10/24/19 06:28 Chloride 101 mmol/L (98-107) 10/24/19 06:28 Carbon Dioxide 29 mmol/L (22-30) 10/24/19 06:28 Anion Gap 7 mmol/L 10/24/19 06:28 BUN 14 mg/dL (7-17) 10/24/19 06:28 Creatinine 0.73 mg/dL (0.52-1.04) 10/24/19 06:28 Est GFR (CKD-EPI)AfAm >90 (>60 ml/min/1.73 sqM) 10/24/19 06:28 Est GFR (CKD-EPI)NonAf 83 (>60 ml/min/1.73 sqM) 10/24/19 06:28 Glucose 100 mg/dL (74-99) H 10/24/19 06:28 Calcium 9.7 mg/dL (8.4-10.2) 10/24/19 06:28 Total Bilirubin 0.8 mg/dL (0.2-1.3) 10/24/19 06:28 AST 26 U/L (14-36) 10/24/19 06:28 ALT 20 U/L (4-34) 10/24/19 06:28 Alkaline Phosphatase 73 U/L (38-126) 10/24/19 06:28 Total Protein 7.2 g/dL (6.3-8.2) 10/24/19 06:28 Albumin 4.3 g/dL (3.5-5.0) 10/24/19 06:28 Urine Opiates Screen Not Detected (NotDetected) 10/23/19 13:56 Ur Oxycodone Screen Not Detected (NotDetected) 10/23/19 13:56 Urine Methadone Screen Not Detected (NotDetected) 10/23/19 13:56 Ur Propoxyphene Screen Not Detected (NotDetected) 10/23/19 13:56 Ur Barbiturates Screen Not Detected (NotDetected) 10/23/19 13:56 U Tricyclic Antidepress Not Detected (NotDetected) 10/23/19 13:56 Ur Phencyclidine Scrn Not Detected (NotDetected) 10/23/19 13:56 Ur Amphetamines Screen Not Detected (NotDetected) 10/23/19 13:56 U Methamphetamines Scrn Not Detected (NotDetected) 10/23/19 13:56 U Benzodiazepines Scrn Not Detected (NotDetected) 10/23/19 13:56 Urine Cocaine Screen Not Detected (NotDetected) 10/23/19 13:56 U Marijuana (THC) Screen Not Detected (NotDetected) 10/23/19 13:56 10/24/19 11:58 IDENTIFYING DATA: Patient is a 69-year-old female who currently lives alone in a house has 3 daughters and 3 grandchildren and is retired. HPI: Patient presented to the hospital her day with her daughter with complaint of anxiety claims that it has been worsening for the past year. Apparently patient has tried many different medications in the past several weeks by her primary care physician and is currently on Paxil over states that it has not been helping her. She was stating that she was uncomfortable. Her UDS was negative upon admission. Patient was seen in her room this morning and was agreeable to speak to hand sign writer in the office. Patient did appear to be shaky and anxious and states that she feels "overwhelmed and constantly anxious". She claims that her mood has also been depressed and feels that she has poor concentration. She denies having any specific triggers and endorsed feeling ti mes where she has racing heart howeverof it panic attacks. She claims that she's been struggling with this "my whole life". She spoke about her nephew dying at a young age which has been on her mind recently. She claims to have good support in contact with her daughter who she claims is a nurse. She states that she has been sleeping approximately 7-8 hours a night and has good appetite. Patient denies any suicidal or homicidal ideations intent or plan. At this time patient denies any auditory or visual hallucinations. Patient denies any flight of ideas racing thoughts and increased in goal directed behavior. Patient admits to using cigarettes daily and alcohol occasionally and denies any other recreational drug use. PAST PSYCHIATRIC HISTORY: Patient states that she has a history of depression and anxiety. She claims that she has been tried on several different medications in the past including Klonopin, Ativan and BuSpar and Paxil which have not helped her. She denies having any outpatient psychiatrist follow-up and denies any previous mental health admissions. She claims that she had 1 suicide attempt overdosing on pills when she was going through a divorce in 2003. PMH:denies ALLERGIES: as per EMR CHEMICAL DEPENDENCY HISTORY: as per HPI FAMILY PSYCHIATRIC/SUBSTANCE USE HISTORY: She states that 2 of her brothers committed suicide. SOCIAL HISTORY: Patient was born and raised in [facility] and completed up to the 10th grade in school. She denies any legal problems. 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 She claims that she has 3 daughters 3 grandkids and is currently retired and and lives alone in a house. MENTAL STATUS EXAM: General Appearance: Patient appears to be stated age is alert, directable, and appears to be anxious and shaky. Patient appears to have fair hygiene and grooming. Behavior: Patient is seated without any agitated behavior. Appears to be anxious yet is cooperative. Speech: Patient's speech is fluent and nonpressured. Mood/Affect: Patient reports their mood is depressed and anxious, affect is congruent Suicidality/Homicidality: Patient denies having any homicidal ideation intent or plan. Denies any suicidal ideations intent or plan Perceptions: Patient denies any visual hallucinations and denies any auditory hallucinations Though content/process: There is no evidence of any delusional thought content and thought process is linear and goal-directed. Depressive thoughts. Memory and concentration: AOX3, grossly intact for the purposes of this session. Can spell "WORLD" backwards Judgment and insight: fair STRENGTHS/WEAKNESSES: strength is that patient is resilient. Weakness is that patient has chronic symptoms. INTELLECT: average IMPRESSIONS: Major depressive disorder, without psychotic features Anxiety disorder unspecified rule out generalized anxiety disorder versus panic disorder Nicotine dependence PLAN: -Patient is admitted under voluntary status to MHU for stabilization of psychiatric symptoms and safety. Patient signed adult voluntary form and medication consent and is placed in patient's chart. -Medications : Will start patient on Effexor XR 37.5 mg daily for anxiety/mood. We will also start patient on melatonin 3 mg daily at bedtime for sleep. -Ativan and Geodon PRN for agitation/aggression -Patient was informed of the risks, benefits and side effects of the medication and patient verbally consented to taking the medications. Patient signed med consent form and was placed in chart. -Internal Medicine consult to perform medical evaluation and physical. -NRT - nicotine gum -SW on board for discharge planning. Encourage patient to participate in groups to work on coping skills. Likely discharge next week. 10/24/19 12:06
[2019-10-24 13:18] LABS: T4, Free (Free Thyroxine) 1.2 ng/dL (0.78-2.19)
--- NOTE | 2019-10-24 15:17 | P.CONS ---
History of Present Illness - Reason for Consult Consult date: 10/24/19 medical management Requesting physician: Jay Alejandro - Chief Complaint [facility] after her - History of Present Illness Consultation: This is a 69-year-old patient of Dr. Houser. Chronic stable medical conditions include GERD, hyperlipidemia, anxiety. Patient has been very anxious. Smokes up pack a day for many years. Patient also subtle. Appetite is fair. Has lost some weight. Trouble sleeping. Feels restless. No fever no chills. No cough. Occasionally short of breath. Review of systems: GEN.: Some weight loss EYES: None HEENT: None NECK: None RESPIRATORY: Occasionally short of breath CARDIOVASCULAR: None GASTROINTESTINAL: Reflux GENITOURINARY: None MUSCULOSKELETAL: None LYMPHATICS: None HEMATOLOGICAL: None PSYCHIATRY: Some anxiety depression NEUROLOGICAL: Fidgety Past medical history to include: Anxiety, hyperlipidemia, GERD Social history: Smokes a pack a day for over 55 years, lives alone. 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 EYES: Pupils equal. Conjunctiva normal. HEENT: External appearance of nose and ears normal, oral cavity grossly normal. NECK: JVD not raised; masses not palpable. HEART: First and second heart sounds are normal; no edema. LUNGS: Respiratory rate normal; decreased breath sounds. ABDOMEN: Soft, nontender, liver spleen not palpable, no masses palpable. PSYCH: [Alert and oriented x3; mood and affect anxious l. NEUROLOGICAL: Cranial nerves grossly intact; no facial asymmetry, power and sensation grossly intact. LYMPHATICS: No lymph nodes palpable in the axilla and neck INVESTIGATIONS, reviewed in the clinical context: Potassium 4.7 creatinine 0.73 TSH 0.452, free T4 1 0.2 Urine drug screen negative Assessment: -Chronic nicotine dependence patient cigarette smoker -GERD -Hyperlipidemia -COPD in a current smoker -Clinical hyperthyroidism. Patient's free T4 is 1. to do the TSH is suppressed. Patient will need further workup as an outpatient. We'll start the patient on a small dose of beta corrie. Plan: Start the patient on Lopressor 12.5 mg by mouth twice a day. Nicotine patch. Spiriva 1 puff daily. Pepcid 20 mg twice a day. Patient to follow-up with assistant cook following discharge. Thank you Dr. Alejandro Past Medical History Past Medical History: No Reported History History of Any Multi-Drug Resistant Organisms: None Reported Past Surgical History: Cholecystectomy, Tubal Ligation Additional Past Surgical History / Comment(s): VOCAL CORD STRIPPING (POLYPS). COLONOSCOPY Past Anesthesia/Blood Transfusion Reactions: Motion Sickness Past Psychological History: Anxiety, Depression Smoking Status: Current every day smoker Past Alcohol Use History: Occasional Past Drug Use History: None Reported - Past Family History Sister(s) Family Medical History: Cancer Additional Family Medical History / Comment(s): THROAT CA Brother(s) Family Medical History: Cancer Additional Family Medical History / Comment(s): LYMPHOMA Medications and Allergies Home Medications Medication Instructions Recorded Confirmed Type LORazepam [Ativan] 0.5 mg PO TID PRN 06/01/19 10/23/19 History Cholecalciferol [Vitamin D3 (25 2,000 unit PO DAILY 10/23/19 10/23/19 History Mcg = 1000 Iu)] PARoxetine HCL [Paxil] 10 mg PO HS 10/23/19 10/23/19 History Allergies Allergy/AdvReac Type Severity Reaction Status Date / Time No Known Allergies Allergy Verified 10/23/19 18:40 Physical Exam Vitals: Vital Signs Temp Pulse Pulse Resp BP BP Pulse Ox 10/24/19 05:09 98.1 F 100 16 132/80 99 10/23/19 22:37 98.5 F 10/23/19 18:05 98.1 F 71 15 164/71 97 10/23/19 18:00 99.2 F 10/23/19 12:49 98.4 F 74 18 129/76 99 Intake and Output 10/23/19 10/24/19 10/24/19 22:59 06:59 14:59 Other: Weight 55.1 kg Results CBC & Chem 7: 10/24/19 06:28 Labs: Abnormal Lab Results - Last 24 Hours (Table) 10/24/19 Range/Units 06:28 Glucose 100 H (74-99) mg/dL
[2019-10-24] MEDS: NICOTINE 21MG/24HR PATCH TRANSDERM SCH (15:51)
[2019-10-24] MEDS ORDERED: MELATONIN 3 MG TABLET PO SCH (21:00)
[2019-10-24] MEDS: METOPROLOL TARTRATE 12.5 MG TAB PO SCH (21:33)
[2019-10-25] MEDS: METOPROLOL TARTRATE 12.5 MG TAB PO SCH ×2 (08:48→21:00)
[2019-10-25] MEDS: NICOTINE 21MG/24HR PATCH TRANSDERM SCH (08:48)
[2019-10-25] MEDS: VENLAFAXINE HCL ER 37.5 MG CAP PO SCH (08:48)
--- NOTE | 2019-10-25 09:38 | P.PN ---
Progress Note - Text Progress Note Date: 10/25/19 Interval History: Patient was seen wandering the hallways and was directable and agreeable to richard shah with director underwriter sales in the office. Patient appeared to be mildly less anxious and reported to have some mild improvement since being started on the medications yesterday. She states that she has taken 2 doses so far the Effexor and is hopeful for her to help her. She states that her mood is also gradually improving. She spoke about going to groups and try to participate as best she can. She claims that she did have a difficult time staying asleep last night. At this time patient denies any suicidal or homical ideations, intent or plan. Patient denies any auditory, visual hallucinations and denies any paranoia or delusions. Patient denies any side effects from the medications and has been compliant with meds. Mental Status Exam: General Appearance: Patient appears to be stated age is alert, directable, and appears to be anxious. Patient appears to have fair hygiene and grooming. Behavior: Patient is seated without any agitated behavior. Appears to be anxious yet is cooperative. Speech: Patient's speech is fluent and nonpressured. Mood/Affect: Patient reports their mood is improving mildly, affect is congruent and anxious affect. Suicidality/Homicidality: Patient denies having any homicidal ideation intent or plan. Denies any suicidal ideations intent or plan Perceptions: Patient denies any visual hallucinations and denies any auditory hallucinations Though content/process: There is no evidence of any delusional thought content and thought process is linear and goal-directed. Memory and concentration: AOX3, grossly intact for the purposes of this session. Judgment and insight: fair Assessment Major depressive disorder, without psychotic features Anxiety disorder unspecified rule out generalized anxiety disorder versus panic disorder Nicotine dependence Plan: -Patient continues to meet criteria for inpatient psychiatric admission for symptom stabilization and safety. Patient has signed adult voluntary form and medication consent and was placed in patient's chart. -Medications: Will increase Effexor XR to 75 mg daily for anxiety/mood. Will increase melatonin to 6 mg nightly for sleep. -When necessary Ativan and Geodon for agitation/aggression. -NRT - [nicotine gum] -SW on board for discharge planning. Encouraged the patient to participate in milieu. Likely discharge in 2-3 days.
[2019-10-25] MEDS: MELATONIN 3 MG TABLET PO SCH (21:01)
[2019-10-26] MEDS: VENLAFAXINE HCL ER 75 MG CAP PO SCH (08:49)
[2019-10-26] MEDS: NICOTINE 21MG/24HR PATCH TRANSDERM SCH (08:49)
[2019-10-26] MEDS: METOPROLOL TARTRATE 12.5 MG TAB PO SCH ×2 (08:49→21:00)
--- NOTE | 2019-10-26 09:12 | P.PN ---
Progress Note - Text Progress Note Date: 10/26/19 Interval History: Patient was seen wandering the hallways before taking her medications this mor manuelito and was directable and agreeable to speak with ticket writer in the office. Patient appeared to be mildly less anxious however claims that the anxiety has been improving along with her depression. She claims that her blood pressure has been increasing and does not know whether it is from the anxiety or the medications. She spoke about going to groups and try to participate as best she can. She claims that she slept much better last night. At this time patient denies any suicidal or homical ideations, intent or plan. Patient denies any auditory, visual hallucinations and denies any paranoia or delusions. Patient denies any side effects from the medications and has been compliant with meds. Mental Status Exam: General Appearance: Patient appears to be stated age is alert, directable, and appears to be anxious. Patient appears to have fair hygiene and grooming. Behavior: Patient is seated without any agitated behavior. Appears to be anxious yet is cooperative. Speech: Patient's speech is fluent and nonpressured. Mood/Affect: Patient reports their mood is improving mildly, affect is congruent Suicidality/Homicidality: Patient denies having any homicidal ideation intent or plan. Denies any suicidal ideations intent or plan Perceptions: Patient denies any visual hallucinations and denies any auditory hallucinations Though content/process: There is no evidence of any delusional thought content and thought process is linear and goal-directed. Memory and concentration: AOX3, grossly intact for the purposes of this session. Judgment and insight: fair Assessment Major depressive disorder, without psychotic features Anxiety disorder unspecified rule out generalized anxiety disorder versus panic disorder Nicotine dependence Plan: -Patient continues to meet criteria for inpatient psychiatric admission for symptom stabilization and safety. Patient has signed adult voluntary form and medication consent and was placed in patient's chart. -Medications: Will continue with Effexor XR to 75 mg daily for anxiety/mood. Will continue with melatonin to 6 mg nightly for sleep. Consider adding BuSpar tomorrow if needed. -Will ask nursing staff to take patient's blood pressure 3 times a day. -When necessary Ativan and Geodon for agitation/aggression. -NRT - nicotine gum -SW on board for discharge planning. Encouraged the patient to participate in milieu. Likely discharge in 2 days.
[2019-10-26 12:55] LABS: Glucose,Whole Blood 76 mg/dL (75-99)
[2019-10-26] MEDS: MELATONIN 3 MG TABLET PO SCH (21:00)
[2019-10-27] MEDS: NICOTINE 21MG/24HR PATCH TRANSDERM SCH (09:06)
[2019-10-27] MEDS: METOPROLOL TARTRATE 12.5 MG TAB PO SCH ×2 (09:06→20:57)
[2019-10-27] MEDS: VENLAFAXINE HCL ER 75 MG CAP PO SCH (09:06)
--- NOTE | 2019-10-27 11:28 | P.PN ---
Progress Note - Text Progress Note Date: 10/27/19 Interval History: Patient was seen wandering the hallways this morning and was directable and ag reeable to speak with editorial writer in the office. Patient appeared to be mildly less anxious today however continues to have a shaking voice. She states that her anxiety and mood have been gradually improving on the current medications. Patient claims that her blood pressure is "unstable" however when vitals were reviewed patient only had a slight elevation in her systolic blood pressure yesterday and last night. Patient claims that she does not want to go up on her Effexor at this time and was offered other medications including BuSpar however patient declined this. She spoke about going to groups and try to participate as best she can. She claims that she slept better last night. At this time patient denies any suicidal or homical ideations, intent or plan. Patient denies any auditory, visual hallucinations and denies any paranoia or delusions. Patient denies any side effects from the medications and has been compliant with meds. Mental Status Exam: General Appearance: Patient appears to be stated age is alert, directable, and appears less anxious today. Patient appears to have fair hygiene and grooming. Behavior: Patient is seated without any agitated behavior. Appears to be anxious yet is cooperative. Speech: Patient's speech is fluent and nonpressured. Mood/Affect: Patient reports their mood is improving mildly, affect is congruent Suicidality/Homicidality: Patient denies having any homicidal ideation intent or plan. Denies any suicidal ideations intent or plan Perceptions: Patient denies any visual hallucinations and denies any auditory hallucinations Though content/process: There is no evidence of any delusional thought content and thought process is linear and goal-directed. Future oriented. Memory and concentration: AOX3, grossly intact for the purposes of this session. Judgment and insight: fair Assessment Major depressive disorder, without psychotic features Anxiety disorder unspecified rule out generalized anxiety disorder versus panic disorder Nicotine dependence Plan: -Patient continues to meet criteria for inpatient psychiatric admission for symptom stabilization and safety. Patient has signed adult voluntary form and medication consent and was placed in patient's chart. -Medications: Will continue with Effexor XR to 75 mg daily for anxiety/mood. Will continue with melatonin to 6 mg nightly for sleep. Added Klonopin 0.5 mg daily for anxiety. -Continue with 3 times a day vital checks. -When necessary Ativan and Dariusdon for agitation/aggression. -NRT - nicotine gum -SW on board for discharge planning. Encouraged the patient to participate in milieu. Chopper Gun Operator and patient called patient's daughter Shu over the phone and addressed any questions and concerns she had about her mother's care. It was decided that patient's best option at this time would be to start Klonopin at a low-dose to help with anxiety and then continue on with Effexor and possibly titrate this medication up in the future, patient and daughter were agreeable to this plan. Likely discharge tomorrow.
[2019-10-27] MEDS: clonazePAM 0.5 MG TAB PO SCH (11:44)
[2019-10-27] MEDS: MELATONIN 3 MG TABLET PO SCH (20:57)
[2019-10-28 06:46] VITALS: TEMP 97.9
[2019-10-28] MEDS: METOPROLOL TARTRATE 12.5 MG TAB PO SCH (09:07)
[2019-10-28] MEDS: clonazePAM 0.5 MG TAB PO SCH (09:07)
[2019-10-28] MEDS: NICOTINE 21MG/24HR PATCH TRANSDERM SCH (09:07)
[2019-10-28] MEDS: VENLAFAXINE HCL ER 75 MG CAP PO SCH (09:07)
[2019-10-28 09:08] VITALS: BP 125/95; PULSE 68; RESP 18
--- NOTE | 2019-10-28 09:47 | P.DS ---
Providers Date of admission: 10/23/19 17:41 Expected date of discharge: 10/28/19 Attending physician: Jay Alejandro MD Consults: 10/23/19 17:58 Consult Physician Routine Consulting Provider: Dk Manley Consult Reason/Comments: history and physical Do you want consulting provider notified?: Yes Primary care physician: Diomedes Stokes - Discharge Diagnosis(es) (1) Major depressive disorder without psychotic features Current Visit: Yes Status: Acute Priority: High (2) Generalized anxiety disorder Current Visit: Yes Status: Acute Priority: Medium (3) Nicotine dependence Current Visit: Yes Status: Acute Priority: Low Hospital Course: Admission HPI: Patient is a 69-year-old female who currently lives alone in a house has 3 daughters and 3 grandchildren and is retired. Patient presented to the hospital her day with her daughter with complaint of anxiety claims that it has been worsening for the past year. Apparently patient has tried many different medications in the past several weeks by her primary care physician and is currently on Paxil over states that it has not been helping her. She was stating that she was uncomfortable. Her UDS was negative upon admission. Patient was seen in her room this morning and was agreeable to speak to comic writer in the office. Patient did appear to be shaky and anxious and states that she feels "overwhelmed and constantly anxious". She claims that her mood has also been depressed and feels that she has poor concentration. She denies having any specific triggers and endorsed feeling times where she has racing heart howeverof it panic attacks. She claims that she's been struggling with this "my whole life". She spoke about her nephew dying at a young age which has been on her mind recently. She claims to have good support in contact with her daughter who she claims is a nurse. She states that she has been sleeping approximately 7-8 hours a night and has good appetite. Patient denies any suicidal or homicidal ideations intent or plan. At this time patient denies any auditory or visual hallucinations. Patient denies any flight of ideas racing thoughts and increased in goal directed behavior. Patient admits to using cigarettes daily and alcohol occasionally and denies any other recreational drug use. Hospital course: Upon admission to the unit patient was initially depressed and anxious. Patient was however directable and agreeable to commence treatment. Patient got along well with other patients on the unit and followed unit protocol. Patient was compliant with the medications and denied any side effects throughout hospital course. Patient was started on Effexor XR and titrated up to a dose of 75 mg daily for anxiety/mood. Patient was also started on melatonin 6 mg nightly for sleep and Klonopin 0.5 mg daily for anxiety. Patient spoke of her stressors and engaged in therapy both group and individual. Patient was also seen by medical team for history and physical exam. Throughout the course of the hospitalization patient gradually improved with regards to mood, anxiety, sleep and became future oriented with improved insight and judgment. On the day of discharge patient denied any suicidal or homicidal ideations intent or plan denied any auditory or visual hallucinations. Patient endorsed wanting to live for her family and her future. Patient denied any access to guns or weapons. Patient denied any paranoia and did not endorse any delusions. Patient does not have a significant history of substance abuse however was counseled on abstaining from all substances including alcohol and marijuana. Patient was also counseled on the medications and need for regular compliance and was encouraged to follow-up with their outpatient appointment for mental health and also for primary care. Prior to discharge a family meeting will be arranged by social sciences department chair to answer any questions and ensure safety upon discharge. Mental status exam: General Appearance: Patient appears to be short in stature, thin and stated age is alert, pleasant, and cooperative. Patient is in no acute distress and has fair hygiene and grooming Behavior: Patient is calmly seated without any agitated behavior. Speech: Patient's speech is fluent and nonpressured. Mood/Affect: Patient reports their mood is "much better", affect is congruent and euthymic. Suicidality/Homicidality: Patient denies having any suicidal or homicidal ideation intent or plan. Perceptions: Patient denies any auditory or visual hallucinations. Though content/process: There is no evidence of any delusional thought content and thought process is linear and goal-directed. More future oriented. Memory and concentration: AOX3, grossly intact for the purposes of this session. Can spell "WORLD" backwards correctly. Judgment and insight: improved with guarded prognosis Impression: Major depressive disorder, without psychotic features Generalized anxiety disorder Nicotine dependence Plan: -Continue with discharge today as patient has improved and stabilized psychiatrically and is not currently an imminent threat to herself and/or others. -Continue medications: Effexor XR 75 mg daily for anxiety/mood, melatonin 6 mg nightly for sleep, Klonopin 0.5 mg daily for anxiety. -Patient was counseled on the need for medication compliance and appropriate follow-up at mental health and also primary care for medical issues. Patient verbalized understanding and agreed. -Social work to arrange for and conduct family meeting to ensure safety upon discharge and answer any questions/concerns. Bowling Ball Grader And Marker did a conference call with patient and her daughter over the phone to answer any questions and concerns and also treatment planning and medications. -Social work also to arrange for patients follow up appointments for psychiatric care along with follow up with primary care provider. -Patient counseled on abstaining from recreational drugs and marijuana and alcohol. Was informed/educated on the adverse effects on their physical and mental health. Patient verbally agreed and understood. -Patient was instructed to return to the hospital or seek immediate medical care if their psychiatric or medical symptoms do worsen or reoccur. Allergies Allergy/AdvReac Type Severity Reaction Status Date / Time No Known Allergies Allergy Verified 10/23/19 18:40 Laboratory Results Sodium 137 mmol/L (137-145) 10/24/19 06:28 Potassium 4.7 mmol/L (3.5-5.1) 10/24/19 06:28 Chloride 101 mmol/L (98-107) 10/24/19 06:28 Carbon Dioxide 29 mmol/L (22-30) 10/24/19 06:28 Anion Gap 7 mmol/L 10/24/19 06:28 BUN 14 mg/dL (7-17) 10/24/19 06:28 Creatinine 0.73 mg/dL (0.52-1.04) 10/24/19 06:28 Est GFR (CKD-EPI)AfAm >90 (>60 ml/min/1.73 sqM) 10/24/19 06:28 Est GFR (CKD-EPI)NonAf 83 (>60 ml/min/1.73 sqM) 10/24/19 06:28 Glucose 100 mg/dL (74-99) H 10/24/19 06:28 POC Glucose (mg/dL) 76 mg/dL (75-99) 10/26/19 12:53 POC Glu Supervisor [employer] Records Division Kika Kennedy 10/26/19 12:53 Calcium 9.7 mg/dL (8.4-10.2) 10/24/19 06:28 Total Bilirubin 0.8 mg/dL (0.2-1.3) 10/24/19 06:28 AST 26 U/L (14-36) 10/24/19 06:28 ALT 20 U/L (4-34) 10/24/19 06:28 Alkaline Phosphatase 73 U/L (38-126) 10/24/19 06:28 Total Protein 7.2 g/dL (6.3-8.2) 10/24/19 06:28 Albumin 4.3 g/dL (3.5-5.0) 10/24/19 06:28 TSH 0.452 mIU/L (0.465-4.680) L 10/24/19 06: Free T4 1.20 ng/dL (0.78-2.19) 10/24/19 06:28 Urine Opiates Screen Not Detected (NotDetected) 10/23/19 13:56 Ur Oxycodone Screen Not Detected (NotDetected) 10/23/19 13:56 Urine Methadone Screen Not Detected (NotDetected) 10/23/19 13:56 Ur Propoxyphene Screen Not Detected (NotDetected) 10/23/19 13:56 Ur Barbiturates Screen Not Detected (NotDetected) 10/23/19 13:56 U Tricyclic Antidepress Not Detected (NotDetected) 10/23/19 13:56 Ur Phencyclidine Scrn Not Detected (NotDetected) 10/23/19 13:56 Ur Amphetamines Screen Not Detected (NotDetected) 10/23/19 13:56 U Methamphetamines Scrn Not Detected (NotDetected) 10/23/19 13:56 U Benzodiazepines Scrn Not Detected (NotDetected) 10/23/19 13:56 Urine Cocaine Screen Not Detected (NotDetected) 10/23/19 13:56 U Marijuana (THC) Screen Not Detected (NotDetected) 10/23/19 13:56 Vital Signs Temp 97.9 F 10/28/19 06:46 Pulse 68 10/28/19 09:08 Resp 18 10/28/19 09:08 BP 125/95 10/28/19 09:08 Pulse Ox 97 10/28/19 06:46 Patient Condition at Discharge: Stable Plan - Discharge Summary New Discharge Prescriptions: No Action LORazepam [Ativan] 0.5 mg PO TID PRN PRN Reason: Anxiety PARoxetine HCL [Paxil] 10 mg PO HS Cholecalciferol [Vitamin D3 (25 Mcg = 1000 Iu)] 2,000 unit PO DAILY Discharge Medication List LORazepam [Ativan] 0.5 mg PO TID PRN 06/01/19 [History] Cholecalciferol [Vitamin D3 (25 Mcg = 1000 Iu)] 2,000 unit PO DAILY 10/23/19 [History] PARoxetine HCL [Paxil] 10 mg PO HS 10/23/19 [History] Follow up Appointment(s)/Referral(s): Diomedes Stokes DO [Primary Care Provider] - 1-2 days Jocelyn Rodriguez MD [STAFF PHYSICIAN] - 1 Week (subclinical hyperthyroidism) Activity/Diet/Wound Care/Special Instructions: Activity and diet as tolerated. Avoid the use of street drugs and alcohol. Take all medications as prescribed. When you are in need of refills on your medications please contact your medical provider and/or outpatient psychiatrist to have this done. Please go to scheduled outpatient appointment for aftercare treatment. If symptoms return or become worse, call the crisis line at and/or go to the nearest emergency room for evaluation.
== END 2019-10-28 14:25 | disposition home or self-care (01) | DRG 881 ==
LOC: EC 12:38 → 3MHU 17:41
PROVIDERS: ADMIT Psychiatry & Neurology Psychiatry; ATTEND Psychiatry & Neurology Psychiatry
DX: F32.9 Major depressive disorder, single episode, unspecified (principal); E05.90 Thyrotoxicosis, unspecified without thyrotoxic crisis or storm; J44.9 Chronic obstructive pulmonary disease, unspecified; F41.1 Generalized anxiety disorder; E78.5 Hyperlipidemia, unspecified; K21.9 Gastro-esophageal reflux disease without esophagitis; F17.210 Nicotine dependence, cigarettes, uncomplicated; Z79.899 Other long term (current) drug therapy; Z90.49 Acquired absence of other specified parts of digestive tract; Z98.51 Tubal ligation status; Z98.890 Other specified postprocedural states; Z80.8 Family history of malignant neoplasm of other organs or systems; Z80.7 Family history of other malignant neoplasms of lymphoid, hematopoietic and related tissues
CPT/HCPCS: 80053; 80306; 82075; 84439; 84443; 99285

== ENCOUNTER → 2020-04-15 | Outpatient (CLI) | payer MEDICARE ==
--- NOTE | 2020-04-19 08:23 | MM ---
Reason for exam: screening (asymptomatic). Last mammogram was performed 1 year and 2 months ago. History: Patient is postmenopausal and history of other cancer. Physical Findings: A clinical breast exam by your physician is recommended on an annual basis and results should be correlated with mammographic findings. MG 3D Screening Mammo W/Cad Bilateral CC and MLO view(s) were taken. Prior study comparison: February 28, 2019, bilateral MG 3d screening mammo w/cad. February 11, 2018, bilateral MG screening mammo w CAD. The breast tissue is heterogeneously dense. This may lower the sensitivity of mammography. Finding: There are typically benign round calcifications in the right breast. There is no discrete abnormality. Bilateral skin lesions redemonstrated. ASSESSMENT: Benign, BI-RAD 2 RECOMMENDATION: Routine screening mammogram of both breasts in 1 year.
== END | disposition home or self-care (01) ==
LOC: RADMAMWWP 09:28
PROVIDERS: ATTEND Family Medicine
DX: Z12.31 Encounter for screening mammogram for malignant neoplasm of breast (principal)
CPT/HCPCS: 77063; 77067

== ENCOUNTER → 2020-06-02 | Outpatient (CLI) | payer MEDICARE ==
--- NOTE | 2020-06-02 14:30 | BD ---
EXAMINATION TYPE: Axial Bone Density DATE OF EXAM: 06/02/2020 COMPARISON: 03.17.2016 CLINICAL HISTORY: 69 YR OLD FEMALE....ICD-10 CODE: M85.80 OSTEOPENIA Height: 61.5 Weight: 145 FRAX RISK QUESTIONS: Current Tobacco Use: YES RISK FACTORS HISTORY OF: HX OF SMALL TOE FX IN THE PAST Family History of Osteoporosis: FATHER, NO FX OF HIP Postmenopausal woman: YES, AT 48 YRS OLD Take estrogen and/or progesterone medications: FOR SHORT AMT OF TIME IN THE PAST, NONE NOW Lost more than 2 inches in height since high school: YES Frequent falls: UNSTEADY, SHAKY Hyperparathyroidism: NO Adrenal Insufficiency: NO MEDICATIONS: Additional Medications: TIMED RELEASE ANTI- ANXIETY, CLONOPIN, VIT D Additional History: ANXIETY, EXAM MEASUREMENTS: Bone mineral densitometry was performed using the [employer] System. Bone mineral density as measured about the Lumbar spine is: ----- L1-L4(G/cm2): 0.967 T Score Values are as follows: ----- L1: -2.3 ----- L2: -2.1 ----- L3: -1.6 ----- L4: -1.1 ----- L1-L4: -1.8 Bone mineral density has: Increased 8.0% since study of: 03.17.2016 Bone mineral density about the R hip (g/cm2): 0.824 Bone mineral density about the L hip (g/cm2): 0.796 T Score values are as follows: -----R Neck: -1.7 -----L Neck: -2.1 -----R Total: -1.5 -----L Total: -1.7 Bone mineral density has: Decreased -2.9% since study of: 03.17.2016 FRAX%s: THERE IS A 21.1% CHANCE FOR A MAJOR OSTEOPOROTIC FX AND A 7.1% FOR HIP.....PROBABILITY FOR FX IN 10 YRS TIME IMPRESSION: Osteopenia NOTE: T-SCORE=SD OF THE YOUNG ADULT MEAN.
== END | disposition home or self-care (01) ==
LOC: RADBDWWP 09:18
PROVIDERS: ATTEND Obstetrics & Gynecology
DX: M85.80 Other specified disorders of bone density and structure, unspecified site (principal)
CPT/HCPCS: 77080

== ENCOUNTER → 2021-08-10 | Outpatient (CLI) | payer MEDICARE ==
--- NOTE | 2021-08-11 14:29 | MM ---
Reason for exam: screening (asymptomatic). Last mammogram was performed 1 year and 4 months ago. History: Patient is postmenopausal and history of other cancer. Physical Findings: A clinical breast exam by your physician is recommended on an annual basis and results should be correlated with mammographic findings. MG 3D Screening Mammo W/Cad Bilateral CC, MLO, and XCCL view(s) were taken. Prior study comparison: April 15, 2020, bilateral MG 3d screening mammo w/cad. February 28, 2019, bilateral MG 3d screening mammo w/cad. There are scattered fibroglandular densities. There is no discrete abnormality. No significant changes when compared with prior studies. ASSESSMENT: Negative, BI-RAD 1 RECOMMENDATION: Routine screening mammogram of both breasts in 1 year.
== END | disposition home or self-care (01) ==
LOC: RADMAMWWP 10:36
PROVIDERS: ATTEND Family Medicine
DX: Z12.31 Encounter for screening mammogram for malignant neoplasm of breast (principal); Z78.0 Asymptomatic menopausal state
CPT/HCPCS: 77063; 77067

== ENCOUNTER → 2021-12-26 | Outpatient (CLI) | payer MEDICARE ==
--- NOTE | 2021-12-26 13:07 | XR ---
EXAMINATION TYPE: XR lumbar spine 2 or 3V, XR Hip RT and AP Pelvis DATE OF EXAM: 12/26/2021 12:10 PM INDICATION: Patient age:Female; 71 years old; Reason for study: M25.551 Pain right hip; PHH. COMPARISON: CT abdomen pelvis 06/01/2019 TECHNIQUE: Frontal, lateral and coned in L5-S1 lateral views of the spine. Additional AP pelvic radio graph with frontal and internal rotation views of the right hip were obtained. FINDINGS: Lumbar spine: Cholecystectomy clips demonstrated in the right upper quadrant. There are 5 nonrib-bearing lumbar sigrid tebral bodies identified. Disc height loss with endplate sclerosis and anterior osteophytosis involvi ng L4-L5. Facet joint arthropathy demonstrated with narrowing of the L4-L5 and L5-S1 neural canals. V ascular calcifications noted. No evidence of any acute osseous pathology. No evidence of loss of sigrid tebral body height is seen. There is normal alignment of the lumbar vertebral bodies. Right hip: No evidence of any acute osseous pathology. No evidence for fracture or dislocation. Multiple pelvic phleboliths identified. IMPRESSION: No acute process. Degenerative changes of the lumbar spine most pronounced at L4-L5 and L5-S1.
== END | disposition home or self-care (01) ==
LOC: RADXRMAIN 11:34
PROVIDERS: ATTEND Nurse Practitioner Family
DX: M47.817 Spondylosis without myelopathy or radiculopathy, lumbosacral region (principal)
CPT/HCPCS: 72100; 73502

== ENCOUNTER → 2022-12-20 | Outpatient (CLI) | payer MEDICARE ==
--- NOTE | 2022-12-20 13:09 | BD ---
EXAMINATION TYPE: Axial Bone Density DATE OF EXAM: 12/20/2022 CLINICAL HISTORY: 72 years old Female. ICD-10 CODE: OSTEOPENIA M85.80 Height: 61.25 Weight: 154.3 FRAX RISK QUESTIONS: Alcohol (3 or more units per day): no Family History (Parent hip fracture): no Glucocorticoids (More than 3mos): no History of Fracture in Adulthood: no Secondary Osteoporosis: 1. Type 1 Diabetes: no 2. Hyperthyroidism: no 3. Menopause before 45: no 4. Malnutrition: no 5. Chronic liver disease: no Rheumatoid Arthritis: no Current Tobacco Use: yes RISK FACTORS HISTORY OF: Hip Fracture (Right/Left): no Spine Fracture: no History of Wrist Fracture: no Surgery to Spine/Hip(right/left)/Wrist (right/left): no Family History of Osteoporosis: father Active: yes Diet low in dairy products/other sources of calcium: no Postmenopausal woman: yes Take estrogen and/or progesterone medications: no Lost more than 2 inches in height since high school: no Frequent falls: no Poor Health: no Hyperparathyroidism: no Adrenal Insufficiency: no MEDICATIONS: Prednisone or other steroids: no Thyroid Medications: no Osteoporosis Medications: no Additional Medications: venlafaxine, Klonopin, Calcium, Biotin, Multi Vit Additional History: EXAM MEASUREMENTS: Bone mineral densitometry was performed using the [employer] System. Bone mineral density as measured about the Lumbar spine is: ----- L1-L4(G/cm2): 0.962 T Score Values are as follows: ----- L1: -2.2 ----- L2: -3.0 ----- L3: -1.4 ----- L4: -1.0 ----- L1-L4: -1.8 Z Score Values are as follows: ----- L1: -0.7 ----- L2: -1.4 ----- L3: 0.2 ----- L4: 0.6 ----- L1-L4: -0.2 Bone mineral density has: -0.5 % since study of: 06/02/2020 Bone mineral density about the R hip (g/cm2): 0.824 Bone mineral density about the L hip (g/cm2): 0.825 T Score values are as follows: -----R Neck: -1.8 -----L Neck: -1.8 -----R Total: -1.5 -----L Total: -1.5 Z Score values are as follows: -----R Neck: 0.0 -----L Neck: -0.1 -----R Total: 0.1 -----L Total: 0.1 Bone mineral density has: increased 1.7 % since study of: 06/02/2020 FRAX%s: The graph provided illustrates a 12.9% chance for a major osteoporotic fx and a 4.5% chance f or the hips probability for fx in 10 years time. IMPRESSION: Osteopenia (T Score between -2.5 and -1). There is slightly increased risk of fracture and the patient may be considered for treatment. Re-Screen 2-5 years. NOTE: T-SCORE=SD OF THE YOUNG ADULT MEAN.
== END | disposition home or self-care (01) ==
LOC: RADBDWWP 09:12
PROVIDERS: ATTEND Obstetrics & Gynecology
DX: M85.89 Other specified disorders of bone density and structure, multiple sites (principal); M81.0 Age-related osteoporosis without current pathological fracture; Z78.0 Asymptomatic menopausal state
CPT/HCPCS: 77080

== ENCOUNTER → 2023-08-27 | Outpatient (CLI) | payer MEDICARE ==
--- NOTE | 2023-08-29 07:48 | MM ---
Reason for Exam: Screening (asymptomatic). Last screening mammogram was performed 12 month(s) ago. Patient History: Menarche at age 12. First Full-Term at age 19. Postmenopausal. Other cancer. Risk Values: Rhonda 5 year model risk: 1.4%. NCI Lifetime model risk: 3.1%. Prior Study Comparison: 04/15/2020 Bilateral Screening Mammogram, [facility]. 08/10/2021 Bilateral Screening Mammogram, [facility]. 08/23/2022 Bilateral MG 3D screening mammo w/cad, [facility]. Tissue Density: There are scattered areas of fibroglandular density. Findings: Analyzed By CAD. There is no suspicious group of microcalcifications or new suspicious mass in either breast. Overall Assessment: Negative, BI-RAD 1 Management: Screening Mammogram of both breasts in 1 year. . Patient should continue monthly self-breast exams. A clinical breast exam by your physician is recommended on an annual basis. This exam should not preclude additional follow-up of suspicious palpable abnormalities. Note on Rhonda scores and lifetime risk: 1. A Rhonda score greater than 3% is considered moderate risk. If this is the case, consider specialist referral to assess eligibility for a risk reducing agent. 2. If overall lifetime risk for the development of breast cancer is 20% or higher, the patient may qualify for future screening with alternating mammogram and breast MRI. Electronically signed and approved by: Carolyn Woo M.D. Radiologist
== END | disposition home or self-care (01) ==
LOC: RADMAMWWP 10:15
PROVIDERS: ATTEND Family Medicine
DX: Z12.31 Encounter for screening mammogram for malignant neoplasm of breast (principal); Z78.0 Asymptomatic menopausal state
CPT/HCPCS: 77063; 77067

== ENCOUNTER 2024-04-15 09:17 | Inpatient (IN) | payer MEDICARE ==
[2024-04-15 09:50] LABS: Glucose,Whole Blood 130 mg/dL (70-110)
--- NOTE | 2024-04-15 10:03 | ED ---
General Adult HPI - General Chief complaint: Neuro Symptoms/Deficit Stated complaint: LEFT SIDED WEAKNESS,FALL Time Seen by Provider: 04/15/24 09:24 Source: patient Mode of arrival: wheelchair Limitations: no limitations - History of Present Illness Initial comments: Dictation was produced using [employer] dictation software. please excuse any grammatical, word or spelling errors. Chief Complaint: 73-year-old female presents to the emergency department for leg symptoms History of Present Illness: Patient 73-year-old female denies any significant comorbidities presents to the emergency department for strokelike symptoms. Symptoms began 6 PM yesterday started with sensory symptoms in her left hand started to spread up her right arm and down her left leg. Patient [place] any history of stroke. Denies any facial weakness. at the bedside states that she is speaking appropriately and not confused The ROS documented in this emergency department record has been reviewed and confirmed by me. Those systems with pertinent positive or negative responses have been documented in the HPI. All other systems are other negative and/or noncontributory. - Related Data Home Medications Medication Instructions Recorded Confirmed Multivit-Min/Iron/Folic/Lutein 1 tab PO DAILY 04/15/24 04/15/24 [Centrum Silver Women Tablet] Previous Rx's Medication Instructions Recorded Venlafaxine HCl ER [Effexor XR] 75 mg PO DAILY 30 Days cap.er.24h 10/28/19 clonazePAM [KlonoPIN] 0.5 mg PO DAILY 30 Days tab 10/28/19 Allergies Allergy/AdvReac Type Severity Reaction Status Date / Time No Known Allergies Allergy Verified 04/15/24 10:23 Review of Systems ROS Statement: Those systems with pertinent positive or pertinent negative responses have been documented in the HPI. ROS Other: All systems not noted in ROS Statement are negative. Past Medical History Past Medical History: No Reported History History of Any Multi-Drug Resistant Organisms: None Reported Past Surgical History: Cholecystectomy, Tubal Ligation Additional Past Surgical History / Comment(s): VOCAL CORD STRIPPING (POLYPS). COLONOSCOPY Past Anesthesia/Blood Transfusion Reactions: Motion Sickness Past Psychological History: Anxiety, Depression Smoking Status: Current every day smoker Past Alcohol Use History: Occasional Past Drug Use History: None Reported - Past Family History Sister(s) Family Medical History: Cancer Additional Family Medical History / Comment(s): THROAT CA Brother(s) Family Medical History: Cancer Additional Family Medical History / Comment(s): LYMPHOMA General Exam - General Exam Comments Initial Comments: PHYSICAL EXAM: General Impression: Alert and oriented x3, not in acute distress HEENT: Normocephalic atraumatic, extra-ocular movements intact, pupils equal and reactive to light bilaterally, mucous membranes moist. Cardiovascular: Heart regular rate and rhythm Chest: Able to complete full sentences, no retractions, no tachypnea Abdomen: abdomen soft, non-tender, non-distended, no organomegaly Musculoskeletal: Pulses present and equal in all extremities, no peripheral edema Motor: no focal deficits noted Neurological: CN II-XII grossly intact, drift of the left arm and left leg, sensory deficit to light touch of the left arm, slight dysarthria Skin: Intact with no visualized rashes Psych: Normal affect and mood Limitations: no limitations Course Vital Signs 04/15/24 04/15/24 04/15/24 09:20 09:45 10:33 Temperature 97.8 F 97.9 F Pulse Rate 78 73 74 Respiratory 18 18 18 Rate Blood Pressure 157/74 167/72 192/78 O2 Sat by Pulse 99 98 Oximetry 04/15/24 04/15/24 04/15/24 10:46 11:15 11:20 Temperature Pulse Rate 75 77 72 Respiratory 18 18 Rate Blood Pressure 165/68 182/78 182/78 O2 Sat by Pulse 98 98 98 Oximetry - Reevaluation(s) Reevaluation #1: 04/15/24 10:02 Patient with NIH of 4 however not a candidate for thrombolytics due to duration of symptoms. Nonetheless code stroke paged. Case discussed with Dr. Riley EKG Findings - EKG Comments: EKG Findings:: My EKG interpretation: Ventricular rate 6, sinus rhythm,. Normal 203, QRS 87, QTc 410. No AR prolongation, no QTC prolongation, no ST or T-wave changes noted. Overall, this EKG is unremarkable Medical Decision Making - Medical Decision Making Was pt. sent in by a medical professional or institution (, PA, GOVERNMENT SERVICES PROFESSIONAL, urgent care, hospital, or shelter...) When possible be specific @ -No Did you speak to anyone other than the patient for history (EMS, parent, family, police, friend...)? What history was obtained from this source @ - at the bedside as described above Did you review nursing and triage notes (agree or disagree)? Why? @ -I reviewed and agree with nursing and triage notes Were old charts reviewed (outside hosp., previous admission, EMS record, old EKG, old radiological studies, urgent care reports/EKG's, shelter records)? Report findings @ -No old charts were reviewed Differential Diagnosis (chest pain, altered mental status, abdominal pain women, abdominal pain men, vaginal bleeding, musculoskeletal, weakness, fever, dyspnea, syncope, headache, dizziness, GI bleed, back pain, seizure, CVA, pa lpatations, mental health)? @ - Differential CVA: Ischemic stroke, hemorrhagic stroke, brain tumor, atypical migraine, Wernicke's encephalopathy, seizure, multiple sclerosis, meningitis, encephalitis, hypoglycemia, Guillain-Shell, electrolytes disturbance, myasthenia gravis.... This is not meant to be an all-inclusive list EKG interpreted by me (3pts min.). @ -See above X-rays interpreted by me (1pt min.). @ -None done CT interpreted by me (1pt min.). @ -CT brain shows no intracranial mass or bleeding. CT angiography shows no large vessel occlusion U/S interpreted by me (1pt. min.). @ -None done What testing was considered but not performed or refused? (CT, X-rays, U/S, labs)? Why? @ -None What meds were considered but not given or refused? Why? @ -None Was smoking cessation discussed for >3mins.? @ -No Were there social determinants of health that impacted care today? How? ( Homelessness, low income, unemployed, alcoholism, drug addiction, transportation, low edu. Level, literacy, decrease access to med. care, custodial, rehab)? @ -No Was there de-escalation of care discussed even if they declined (Discuss DNR or withdrawal of care, Hospice)? DNR status @ -No What co-morbidities impacted this encounter? (DM, HTN, Smoking, COPD, CAD, Cancer, CVA, ARF, Chemo, Hep., AIDS, mental health diagnosis, sleep apnea, morbid obesity)? @ -None Was patient admitted / discharged? Hospital course, mention meds given and route, prescriptions, significant lab abnormalities, going to OR and other pertinent info. @ -73-year-old female presents to the emergency department with acute stroke. Patient symptoms began yesterday. Patient's NIH score is 4. Patient not a candidate for thrombolytics due to time of onset. Vital signs are stable. CT brain CT angiography shows no acute processes. Labs are unremarkable. Imaging studies are negative. Patient be admitted with consultation to neurology. Discussed with Dr. Riley as described above Did you discuss the management of the patient with other professionals (professionals i.e. , PA, GOVERNMENT SERVICES PROFESSIONAL, lab, RT, psych nurse, social media specialist, typo machine operator, teacher, preventive medicine officer, case resource manager)? Give summary @ -Case discussed with hospitalist for admission Was critical care preformed (if so, how long)? @ -Yes, 33 minutes Undiagnosed new problem with uncertain prognosis? @ -No Drug Therapy requiring intensive monitoring for toxicity (Heparin, Nitro, Insulin, Cardizem)? @ -No Were any procedures done? @ -No Diagnosis/symptom? Acute, or Chronic, or Acute on Chronic? Uncomplicated (without systemic symptoms) or Complicated (systemic symptoms)? @ -Acute stroke Side effects of treatment? @ -No Exacerbation, Progression, or Severe Exacerbation? @ -No Poses a threat to life or bodily function? How? (Chest pain, USA, CA, pneumonia, PE, COPD, DKA, ARF, appy, cholecystitis, CVA, Diverticulitis, Homicidal, Suicidal, threat to staff... and all critical care pts) @ -yes - Lab Data Result diagrams: 04/15/24 09:53 04/15/24 09:53 Lab Results 04/15/24 04/15/24 04/15/24 Range/Units 09:49 09:53 09:53 WBC 11.0 H (3.8-10.6) k/uL RBC 4.84 (3.80-5.40) m/uL Hgb 14.6 (11.4-16.0) gm/dL Hct 44.6 (34.0-46.0) % MCV 92.2 (80.0-100.0) fL MCH 30.3 (25.0-35.0) pg MCHC 32.8 (31.0-37.0) g/dL RDW 12.8 (11.5-15.5) % Plt Count 319 (150-450) k/uL MPV 8.0 Neutrophils % 64 % Lymphocytes % 28 % Monocytes % 5 % Eosinophils % 1 % Basophils % 1 % Neutrophils # 7.1 (1.3-7.7) k/uL Lymphocytes # 3.0 (1.0-4.8) k/uL Monocytes # 0.5 (0-1.0) k/uL Eosinophils # 0.2 (0-0.7) k/uL Basophils # 0.1 (0-0.2) k/uL PT 10.2 (10.0-12.5) sec INR 0.9 (<1.2) APTT 25.2 (22.0-30.0) sec Sodium (137-145) mmol/L Potassium (3.5-5.1) mmol/L Chloride (98-107) mmol/L Carbon Dioxide (22-30) mmol/L Anion Gap mmol/L BUN (7-17) mg/dL Creatinine (0.52-1.04) mg/dL Est GFR (CKD-EPI)AfAm (>60 ml/min/1.73 sqM) Est GFR (CKD-EPI)NonAf (>60 ml/min/1.73 sqM) Glucose (74-99) mg/dL POC Glucose (mg/dL) 130 H (70-110) mg/dL POC Glu Ict Security Specialist ID September Calcium (8.4-10.2) mg/dL Total Bilirubin (0.2-1.3) mg/dL AST (14-36) U/L ALT (4-34) U/L Alkaline Phosphatase (38-126) U/L Creatine Kinase (30-135) U/L Troponin I (0.000-0.034) ng/mL Total Protein (6.3-8.2) g/dL Albumin (3.5-5.0) g/dL 04/15/24 04/15/24 Range/Units 09:53 09:53 WBC (3.8-10.6) k/uL RBC (3.80-5.40) m/uL Hgb (11.4-16.0) gm/dL Hct (34.0-46.0) % MCV (80.0-100.0) fL MCH (25.0-35.0) pg MCHC (31.0-37.0) g/dL RDW (11.5-15.5) % Plt Count (150-450) k/uL MPV Neutrophils % % Lymphocytes % % Monocytes % % Eosinophils % % Basophils % % Neutrophils # (1.3-7.7) k/uL Lymphocytes # (1.0-4.8) k/uL Monocytes # (0-1.0) k/uL Eosinophils # (0-0.7) k/uL Basophils # (0-0.2) k/uL PT (10.0-12.5) sec INR (<1.2) APTT (22.0-30.0) sec Sodium 137 (137-145) mmol/L Potassium 4.6 (3.5-5.1) mmol/L Chloride 105 (98-107) mmol/L Carbon Dioxide 25 (22-30) mmol/L Anion Gap 7 mmol/L BUN 17 (7-17) mg/dL Creatinine 0.66 (0.52-1.04) mg/dL Est GFR (CKD-EPI)AfAm >90 (>60 ml/min/1.73 sqM) Est GFR (CKD-EPI)NonAf 87 (>60 ml/min/1.73 sqM) Glucose 124 H (74-99) mg/dL POC Glucose (mg/dL) (70-110) mg/dL POC Glu Ict Security Specialist ID Calcium 9.4 (8.4-10.2) mg/dL Total Bilirubin 0.8 (0.2-1.3) mg/dL AST 34 (14-36) U/L ALT 23 (4-34) U/L Alkaline Phosphatase 84 (38-126) U/L Creatine Kinase 113 (30-135) U/L Troponin I <0.012 (0.000-0.034) ng/mL Total Protein 8.0 (6.3-8.2) g/dL Albumin 4.8 (3.5-5.0) g/dL Disposition Clinical Impression: Cerebrovascular accident (CVA) Disposition: [facility]MITT[facility] Condition: Fair Referrals: Diomedes Stokes DO [Primary Care Provider] - 1-2 days Decision Time: 11:00
[2024-04-15 10:14] LABS: Basophils # (A) 0.1 k/uL (0-0.2); Basophils % (A) 1 %; Eosinophils # (A) 0.2 k/uL (0-0.7); Eosinophils % (A) 1 %; HCT 44.6 % (34.0-46.0); HGB 14.6 gm/dL (11.4-16.0); Lymphocytes % (A) 28 %; MCH 30.3 pg (25.0-35.0); MCHC 32.8 g/dL (31.0-37.0); MCV 92.2 fL (80.0-100.0); Monocytes # (A) 0.5 k/uL (0-1.0); Monocytes % (A) 5 %; Neutrophils # (A) 7.1 k/uL (1.3-7.7); Neutrophils % (A) 64 %; Platelet Count 319 k/uL (150-450); RBC 4.84 m/uL (3.80-5.40); RDW 12.8 % (11.5-15.5)
[2024-04-15 10:27] LABS: INR 0.9 (<1.2); Partial Thromboplastin Time 25.2 sec (22.0-30.0); Prothrombin Time 10.2 sec (10.0-12.5)
--- NOTE | 2024-04-15 10:28 | XR ---
EXAMINATION TYPE: XR chest 2V DATE OF EXAM: 04/15/2024 10:18 AM COMPARISON: None TECHNIQUE: XR chest 2V Frontal and lateral views of the chest. CLINICAL INDICATION:Female, 73 years old with history of altered mental status; FINDINGS: Lungs/Pleura: There is flattening of the diaphragm with increased lucency of the lungs. No evidence o f pneumothorax, pleural effusion or focal consolidation. Chronic senescent parenchymal change. Pulmonary vascularity: Unremarkable. Heart/mediastinum: Cardiomediastinal silhouette is prominent in size. Atherosclerotic calcifications are seen in the aorta. Musculoskeletal: No acute osseous pathology. IMPRESSION: 1. No acute cardiopulmonary disease process. 2. COPD changes. [facility], , 04/15/2024 10:26 AM
--- NOTE | 2024-04-15 10:31 | CT ---
EXAMINATION TYPE: CT brain wo con CT DLP: 1092 mGycm, Automated exposure control for dose reduction was used. DATE OF EXAM: 04/15/2024 10:17 AM COMPARISON: None. CLINICAL INDICATION:Female, 73 years old with history of Neuro deficit, acute, stroke suspected, CODE STROKE TECHNIQUE: Brain: Multiple axial CT images of the brain were obtained without IV contrast. . Coronal and sagitta l reformats reviewed. FINDINGS: Brain: Extra-axial spaces: No abnormal extra-axial fluid collections. Ventricular system: Within normal limits Cerebral parenchyma: Age-appropriate cerebral volume loss. No acute intraparenchymal hemorrhage or ma ss effect. The pinto-white junction is well differentiated. Scattered and confluent hypoattenuating a reas are seen within the periventricular and subcortical white matter. Prominent perivascular space versus remote small lacunar infarct within the left basal ganglia. Cerebellum: Encephalomalacia identified within the left cerebellar hemisphere. Mass effect: No evidence of midline shift. Intracranial vasculature: Atherosclerotic calcifications of the intracranial vessels. Soft tissues: Normal. Calvarium/osseous structures: No depressed skull fracture. Paranasal sinuses and mastoid air cells: Clear Visualized orbits: Orbital contents are intact. IMPRESSION: 1. No acute intracranial process. 2. Remote lacunar injuries along with nonspecific white matter changes likely secondary to chronic mi croangiopathy. [facility], , 04/15/2024 10:29 AM
[2024-04-15 10:34] LABS: ALT 23 U/L (4-34); African American GFR (CKD) >90 (>60 ml/min/1.73 sqM); Albumin 4.8 g/dL (3.5-5.0); Anion Gap 7 mmol/L; Blood Urea Nitrogen 17 mg/dL (7-17); Calcium 9.4 mg/dL (8.4-10.2); Carbon Dioxide 25 mmol/L (22-30); Chloride 105 mmol/L (98-107); Creatine Kinase 113 U/L (30-135); Glucose 124 mg/dL (74-99); Non-African American GFR(CKD) 87 (>60 ml/min/1.73 sqM); Sodium 137 mmol/L (137-145); Total Bilirubin 0.8 mg/dL (0.2-1.3)
[2024-04-15 10:53] LABS: AST 34 U/L (14-36); Potassium 4.6 mmol/L (3.5-5.1)
[2024-04-15 10:54] LABS: Alkaline Phosphatase 84 U/L (38-126)
--- NOTE | 2024-04-15 11:05 | CT ---
EXAMINATION TYPE: CT angio head neck CT DLP: 407.4 mGycm, Automated exposure control for dose reduction was used. DATE OF EXAM: 04/15/2024 10:39 AM COMPARISON: CT brain 04/15/2024, MRI brain 06/23/2016. CLINICAL INDICATION:Female, 73 years old with history of Neuro deficit, acute, stroke suspected; PHH, CODE STROKE TECHNIQUE: Axially acquired helical CT angiogram of the head and neck was obtained with contrast util izing 65 cc of Isovue-370 administered intravenously. Axial images are supplemented with 3D reconstru ctions which were post-processed at an independent workstation. NASCET criteria used. FINDINGS: CTA HEAD: No evidence of acute intracranial hemorrhage, mass effect, or midline shift. The ventricles, sulci, a nd cisterns are unremarkable. The visualized portions of the internal carotid arteries, middle cerebral arteries, anterior cerebral arteries, and posterior cerebral arteries are patent. There is a small nidus within the anterior fal x region at midline measuring up to 6 mm with bag of worms appearance and draining prominent vein ant eriorly (series 406, image 40). It involves the 3 segments of the MOOKIE. Retrospectively appears stable in size from prior MR 2017. The basilar and vertebral arteries are patent. CTA NECK: Right Carotid System: The common carotid artery and external carotid artery are patent. The carotid bifurcation demonstrate s no evidence of hemodynamically significant stenosis. The remaining portions of the internal carotid artery demonstrate normal size without significant narrowing. Left Carotid System: The common carotid artery and external carotid artery are patent. The carotid bifurcation demonstrate s no evidence of hemodynamically significant stenosis. The remaining portions of the internal carotid artery demonstrate normal size without significant narrowing. Right vertebral artery is patent. Poor visualization of the V1 segment of the left vertebral artery b eginning at its origin. The remaining portions are opacified. There is a three-vessel aortic arch. The origins of the great vessels are patent. No evidence of hemo dynamically significant stenosis. Centrilobular and paraseptal emphysematous changes. Multilevel degenerative changes of the cervical s pine. Bilateral shoulder arthropathy. IMPRESSION: 1. No evidence of dissection of the cervical internal carotid arteries or any evidence of significant stenosis at the carotid bifurcations. 2. Probable high-grade stenosis of the V1 segment of the left vertebral artery. Remaining portions of the left vertebral artery are patent. 3. 6 mm enhancing nidus within the within the region of the A3 segment of the anterior cerebral arter ies suspicious for AVM. Retrospectively not significant change from prior MR 2017. 4. No evidence of high-grade stenosis. [facility], , 04/15/2024 11:02 AM
[2024-04-15] MEDS ORDERED: clonazePAM 0.5 MG TAB PO PRN (13:00)
[2024-04-15] MEDS: KETOROLAC 15 MG/ML 1 ML VIAL IVP PRN (13:01)
[2024-04-15] MEDS: MORPHINE SULFATE 4 MG/ML SYRINGE IVP PRN (13:02)
--- NOTE | 2024-04-15 13:05 | P.HPIM ---
History of Present Illness 73-year-old pleasant female came in with complaints of tingling and numbness in the left hand as well as weakness in the left hand and patient says she is weak in the left leg as well although she has 5/5 strength in the left leg but is having trouble walking. The symptoms started yesterday 6 PM tingling numbness is on and off because of which patient did not seek any medical attention came to ER today. Patient had a CT of the head which did not show any acute abnormalities CT angio of the head and neck showed some critical stenosis in one of the vertebral arteries. Patient also fell last night and complaining of significant pain chest x-ray did not show any rib fractures will obtain a dedicated rib x-ray. REVIEW OF SYSTEMS: All other systems are negative except those mentioned in the HPI PHYSICAL EXAMINATION: GENERAL: The patient is alert and oriented x3, not in any acute distress. Well developed, well nourished. HEENT: Pupils are round and equally reacting to light. EOMI. No scleral icterus. No conjunctival pallor. Normocephalic, atraumatic. No pharyngeal erythema. No thyromegaly. CARDIOVASCULAR: S1 and S2 present. No murmurs, rubs, or gallops. PULMONARY: Chest is clear to auscultation, no wheezing or crackles. ABDOMEN: Soft, nontender, nondistended, normoactive bowel sounds. No palpable organomegaly. MUSCULOSKELETAL: No joint swelling or deformity. EXTREMITIES: No cyanosis, clubbing, or pedal edema. 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 Assessment and plan Possible cerebrovascular accident: Neurology will evaluate the patient we will obtain an echocardiogram lipid panel for tomorrow physical therapy Occupational Therapy evaluation. -Severe rib pain will obtain rib x-ray patient had a fall there is a possibility of refracture will use Toradol and morphine for pain along with GI prophylaxis -Anxiety/depression resume her on her home meds DVT prophylaxis: Lovenox Past Medical History Past Medical History: No Reported History History of Any Multi-Drug Resistant Organisms: None Reported Past Surgical History: Cholecystectomy, Tubal Ligation Additional Past Surgical History / Comment(s): VOCAL CORD STRIPPING (POLYPS). COLONOSCOPY Past Anesthesia/Blood Transfusion Reactions: Motion Sickness Past Psychological History: Anxiety, Depression Smoking Status: Current every day smoker Past Alcohol Use History: Occasional Past Drug Use History: None Reported - Past Family History Sister(s) Family Medical History: Cancer Additional Family Medical History / Comment(s): THROAT CA Brother(s) Family Medical History: Cancer Additional Family Medical History / Comment(s): LYMPHOMA Medications and Allergies Home Medications Medication Instructions Recorded Confirmed Type Venlafaxine HCl ER [Effexor XR] 75 mg PO DAILY 30 Days cap.er.24h 10/28/19 04/15/24 Rx clonazePAM [KlonoPIN] 0.5 mg PO DAILY 30 Days tab 10/28/19 04/15/24 Rx Multivit-Min/Iron/Folic/Lutein 1 tab PO DAILY 04/15/24 04/15/24 History [Centrum Silver Women Tablet] Allergies Allergy/AdvReac Type Severity Reaction Status Date / Time No Known Allergies Allergy Verified 04/15/24 10:23 Physical Exam Vitals: Vital Signs Temp Pulse Resp BP Pulse Ox 04/15/24 11:20 72 18 182/78 98 04/15/24 11:15 77 182/78 98 04/15/24 10:46 75 18 165/68 98 04/15/24 10:33 97.9 F 74 18 192/78 98 04/15/24 09:45 73 18 167/72 04/15/24 09:20 97.8 F 78 18 157/74 99 Intake and Output 04/14/24 04/15/24 04/15/24 22:59 06:59 14:59 Other: Weight 68.039 kg Results CBC & Chem 7: 04/15/24 09:53 04/15/24 09:53 Labs: Abnormal Lab Results - Last 24 Hours (Table) 04/15/24 04/15/24 04/15/24 Range/Units 09:49 09:53 09:53 WBC 11.0 H (3.8-10.6) k/uL Glucose 124 H (74-99) mg/dL POC Glucose (mg/dL) 130 H (70-110) mg/dL
--- NOTE | 2024-04-15 14:11 | XR ---
EXAMINATION TYPE: XR ribs LT DATE OF EXAM: 04/15/2024 1:56 PM INDICATION: Patient age:Female; 73 years old; Reason for study: rib pain; PHH. COMPARISON: Chest radiograph 04/15/2024 TECHNIQUE: Frontal and oblique views of the left ribs. FINDINGS: Acute mildly displaced left lateral sixth rib fracture. Overall, the lungs are clear. The cardiac silhouette is normal in size. Atherosclerotic calcification of the aorta. The remaining osse ous structures are intact. Left shoulder arthropathy. IMPRESSION: Acute mildly displaced left lateral sixth rib fracture. [facility], , 04/15/2024 2:08 PM
[2024-04-15] MEDS: FAMOTIDINE 20 MG TAB PO SCH (14:47)
[2024-04-15] MEDS: VENLAFAXINE HCL ER 75 MG CAP PO SCH (14:47)
[2024-04-15] MEDS: ASPIRIN 81 MG PO STA (14:49)
[2024-04-15] MEDS: CLOPIDOGREL 75 MG TAB PO STA (15:59)
[2024-04-16 08:26] LABS: Chol/HDL Ratio 6.21 Ratio; LDL Cholesterol,Calculated 212.3 mg/dL (0.0-131.0)
[2024-04-16] MEDS: ASPIRIN 81 MG PO SCH (08:41)
[2024-04-16] MEDS: LOSARTAN 25 MG TAB PO SCH (08:41)
[2024-04-16] MEDS: CLOPIDOGREL 75 MG TAB PO SCH (08:41)
[2024-04-16] MEDS: amLODIPine 10 MG TAB PO SCH (08:41)
[2024-04-16] MEDS: ENOXAPARIN 40 MG/0.4 ML SYRINGE SQ SCH (08:42)
--- NOTE | 2024-04-16 09:18 | CA ---
Transthoracic Echo Report Name: Dominique Narvaez Age: 73 Gender: F : 1950 Exam Date: 04/15/2024 16:04 Exam Location: [facility] Ht (in): 63 Wt (lb): 150 Ordering Physician: Ean Domingo MD Attending/Referring Phys: Petroleum Laboratory Technician Lexie Garcia RDCS Procedure CPT: Indications: stroke Cardiac Hx: Technical Quality: Fair Contrast 1: Agitated Saline Total Dose (mL): 10 Contrast 2: Total Dose (mL): MEASUREMENTS (Male / Female) Normal Values 2D ECHO LV Diastolic Diameter PLAX 4.0 cm 4.2 - 5.9 / 3.9 - 5.3 cm LV Systolic Diameter PLAX 1.9 cm IVS Diastolic Thickness 1.1 cm 0.6 - 1.0 / 0.6 - 0.9 cm LVPW Diastolic Thickness 1.1 cm 0.6 - 1.0 / 0.6 - 0.9 cm LV Relative Wall Thickness 0.5 RV Internal Dim ED PLAX 3.0 cm LA Volume 52.5 cm??? 18 - 58 / 22 - 52 cm??? LA Volume Index 29.9 cm???/m??? 16 - 28 cm???/m??? M-MODE Aortic Root Diameter MM 2.4 cm LA Systolic Diameter MM 3.7 cm LA Ao Ratio MM 1.5 AV Cusp Separation MM 1.7 cm DOPPLER AV Peak Velocity 136.8 cm/s AV Peak Gradient 7.5 mmHg AV Mean Velocity 92.5 cm/s AV Mean Gradient 3.9 mmHg AV Velocity Time Integral 33.1 cm AI Peak Velocity 362.8 cm/s AI Peak Gradient 52.7 mmHg AI Pressure Half Time 933.9 ms LVOT Peak Velocity 68.0 cm/s LVOT Peak Gradient 1.9 mmHg LVOT Velocity Time Integral 15.0 cm MV Area PHT 3.4 cm??? Mitral E Point Velocity 80.2 cm/s Mitral A Point Velocity 107.5 cm/s Mitral E to A Ratio 0.7 MV Deceleration Time 223.4 ms MV E' Velocity 7.0 cm/s Mitral E to MV E' Ratio 11.5 TR Peak Velocity 251.6 cm/s TR Peak Gradient 25.3 mmHg Right Ventricular Systolic Press 30.3 mmHg FINDINGS Left Ventricle Mildly increased septal wall thickness. Mildly increased posterior wall thickness. Left ventricular cavity size normal. Normal left ventricular systolic function with no obvious regional wall motion abnormalities. Left ventricular ejection fraction is estimated at 55-60%. Grade 1 diastolic dysfunction. Right Ventricle Normal right ventricular size and function. Right ventricular systolic pressure within normal limits. Right Atrium Normal right atrial size. Negative agitated saline bubble study for right to left shunt. Left Atrium Mildly increased left atrial volume. Interatrial septal aneurysm. Mitral Valve Structurally normal mitral valve. Mild mitral annular calcification. Mild mitral regurgitation. Centrally directed mitral regurgitation jet. Aortic Valve Trileaflet aortic valve. No aortic stenosis. Mild aortic regurgitation. Aortic valve sclerosis. Tricuspid Valve Structurally normal tricuspid valve. Mild tricuspid regurgitation. Pulmonic Valve Structurally normal pulmonic valve. Trace pulmonic regurgitation. Pericardium No pericardial effusion. Aorta Normal size aortic root and proximal ascending aorta. CONCLUSIONS Normal LV function Mild mitral regurgitation Mild aortic regurgitation Previewed by: Dr. Clemente Solorio MD (Electronically Signed) Final Date: 16 April 2024 09:17
--- NOTE | 2024-04-16 10:14 | P.CNNES ---
History of Present Illness Consult date: 04/15/24 Requesting physician: Geovany Cueva Reason for Consult: Code stroke History of Present Illness: Patient is a 73-year-old right-handed female came to the hospital today at 9:17 AM for strokelike symptoms. Patient's and daughter were also present and they provided with a history. Patient states that her symptoms started yesterday at around 5 to 6 PM when she noticed her left hand became weak. Dayana johnson states that previously sometimes her left hand would fall asleep and she would shake it off and goes away. She had difficulty with picking up with the left hand. She thought that she may have pinched nerve, will come back but did not this time. Patient was awake when the symptoms happened. She did have raked leaves for 30 minutes about few hours prior to onset of the symptoms. There was no facial droop or slurred speech. Patient also noticed difficulty with walking with the left leg, as the left leg did not want to move while walking. Patient was stubborn, did not want to come to the hospital, as she has a scheduled doctor's appointment the next day (today). Patient stayed home and just watched the TV. When she went to sleep, patient somehow fell out of bed at 5:30 AM this morning and she woke up to hitting her self on the floor. She hurt her left rib cage. She went back to bed. Later when she woke up, she was in the kitchen at around 7:15 AM, when she collapsed and could not get back up from the floor. Therefore her brought her to the hospital. Vital signs arrival blood pressure 157/74, pulse of 70 temperature 97.8. Patient's blood pressure went up and now it is 182/78. Blood test shows WBC 11.0 normal hemoglobin and platelets. PT PTT normal work. CMP normal, CK, troponin negative. Chest x-ray revealed no acute cardiopulmonary process. COPD changes. CT head revealed no acute intracranial process. Remote lacunar injuries along with nonspecific white matter changes, likely secondary to microvascular angiopathy. I personally reviewed CT head, agree with the findings. There is evidence of old small infarct in the left cerebellum peripherally, genu of the right internal capsule, and perhaps in bilateral pallidum. EKG shows sinus rhythm. Patient was not a candidate for tPA, as she has been symptomatic for over 12 hours. No large vessel occlusion noted. Home medications include multivitamins, clonazepam 0.5 mg daily and Effexor XR 75 mg daily. Patient does not take any antiplatelet medication. No personal or family history of stroke or TIA. Patient denies any history of hypertension or diabetes. Patient has smoked 1/4 pack/day for 50+ years. Denies any alcohol use. Review of Systems Patient complaining of pain in the left sided ribs from the fall. All other pertinent positive and negatives review of system mentioned in the HPI. Past Medical History Past Medical History: No Reported History History of Any Multi-Drug Resistant Organisms: None Reported Past Surgical History: Cholecystectomy, Tubal Ligation Additional Past Surgical History / Comment(s): VOCAL CORD STRIPPING (POLYPS). COLONOSCOPY Past Anesthesia/Blood Transfusion Reactions: Motion Sickness Past Psychological History: Anxiety, Depression Smoking Status: Current every day smoker Past Alcohol Use History: Occasional Past Drug Use History: None Reported - Past Family History Sister(s) Family Medical History: Cancer Additional Family Medical History / Comment(s): THROAT CA Brother(s) Family Medical History: Cancer Additional Family Medical History / Comment(s): LYMPHOMA Medications and Allergies Home Medications Medication Instructions Recorded Confirmed Type Venlafaxine HCl ER [Effexor XR] 75 mg PO DAILY 30 Days cap.er.24h 10/28/19 04/15/24 Rx clonazePAM [KlonoPIN] 0.5 mg PO DAILY 30 Days tab 10/28/19 04/15/24 Rx Multivit-Min/Iron/Folic/Lutein 1 tab PO DAILY 04/15/24 04/15/24 History [Centrum Silver Women Tablet] Allergies Allergy/AdvReac Type Severity Reaction Status Date / Time No Known Allergies Allergy Verified 04/15/24 10:23 Physical Examination - Vital Signs Vital Signs: Vital Signs Temp Pulse Resp BP Pulse Ox 04/15/24 11:20 72 18 182/78 98 04/15/24 11:15 77 182/78 98 04/15/24 10:46 75 18 165/68 98 04/15/24 10:33 97.9 F 74 18 192/78 98 04/15/24 09:45 73 18 167/72 04/15/24 09:20 97.8 F 78 18 157/74 99 Intake and Output 04/14/24 04/15/2424 22:59 06:59 14:59 Other: Weight 68.039 kg Patient is an elderly female, in no acute distress. Patient is alert awake oriented to time place and person. Speech and language functions are normal. Patient can name and repeat very well. No aphasia or dysarthria. Attention, concentration and fund of knowledge is adequate. Patient has essential tremors involving her voice and head, which is at baseline. On cranial nerve examination, pupils are equal, round and reacting to light, visual mackay are full on confrontation, with no neglect on double simultaneous stimulation. Extraocular muscles are intact with no nystagmus. Face is symmetric, tongue protrudes to the midline. Palatal elevation and sensation normal, hearing is slightly decreased and shoulder shrug normal, facial sensation normal. On muscle strength testing, there is left, about 45 degree pronator drift about 45 degree, and the strength is (right/left) deltoid 5/5-, biceps 5/5, triceps 5/5, mat machine operator 5/4, hip flexion 5/5-, ankle dorsiflexion 5/5. Deep tendon reflexes are symmetric 1+, and plantar is questionable up on the right, but definitely Babinski on the left. Sensory to touch is equal with no neglect on double simultaneous stimulation. Cerebellar function showed no ataxia for [id number] and jwko-bu-wrdy testing only on the left side. Tone and bulk of muscles normal. Gait deferred.. On general examination, there is no carotid bruit or murmur, S1-S2 audible. Chest is clear on consultation. Abdomen is soft nontender. No organomegaly, bowel sounds present. Peripheral pulses are present. No peripheral edema. Results - Laboratory Findings CBC and BMP: 04/15/24 09:53 04/15/24 09:53 Abnormal Lab Findings: Abnormal Labs 04/15/24 04/15/24 04/15/24 09:49 09:53 09:53 WBC 11.0 H Glucose 124 H POC Glucose (mg/dL) 130 H Assessment and Plan Assessment: * Probable acute ischemic stroke, manifesting with mild ataxic left hemiparesis. Possible due to lacunar stroke. Current NIH stroke scale is 3. 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 * Hypertension * Hyperlipidemia * Tobacco use * Essential tremors involving voice and head. Plan: * Patient probably had an acute stroke. Patient not a candidate for tPA, as she came outside the window. * MRI of the brain without contrast, evaluate for acute CVA * 2-D echo revealed normal left ventricular size and systolic function with EF 55 to 60%. No obvious regional wall motion abnormalities. Mildly increased posterior wall thickness. Normal right atrial size. Negative agitated saline bubble study for [id number]-[id number]-vmgf shunt. Mildly increased left atrial volume. Aortic valve sclerosis. * CTA head and neck showed: No evidence of dissection of the cervical internal carotid arteries or any evidence of significant stenosis at the carotid bifurcation. Probable high-grade stenosis of the V1 segment of the left vertebral artery. Remaining portions of the left vertebral arteries are patent. 6 mm enhancing nidus within the region of the A3 segment of the anterior cerebral arteries, suspicious for AVM. Retrospectively, not significant change from prior MRI from 2017. No evidence of high-grade stenosis. * Recommend patient follow-up with neurointervention outpatient for possible AVM. * Fasting a.m. lipid panel * Hemoglobin A1c 6.3, consistent with prediabetes. Recommend healthy lifestyles, physical exercises and dietary adjustment. * Permissive hypertension for next 24-48 hours * Patient was not taking any antiplatelet medication at home. Patient given loading dose of aspirin 324 mg in the ER. To be maintained on aspirin 81 mg daily. We will also give Plavix 150 mg x 1 dose followed by 75 mg daily. Recommend DAPT for at least 21 days. * Neuro checks every 2 hours. * Telemetry monitoring rule out any arrhythmia PT, OT, speech therapy * DVT prophylaxis: Lovenox 40 mg subcu daily * Recommend complete tobacco cessation. * Neurology will continue to follow. Discussed with family members. Thank you for the consult. Time with Patient: Greater than 30
--- NOTE | 2024-04-16 11:01 | MR ---
EXAMINATION TYPE: MR brain wo con DATE OF EXAM: 04/16/2024 10:40 AM COMPARISON: 04/15/2024. CLINICAL INDICATION: Female, 73 years old with history of CVA; PHH, CVA TECHNIQUE: Multi planar, multi sequence imaging was performed through the brain including: T1, T2, In version recovery, Diffusion weighted imaging, and gradient echo imaging. No gadolinium was given. FINDINGS: Areas of restricted diffusion seen within the right MCA territory in the right parietal reg ion involving the deep white matter and the cortex. Additional cortex restricted diffusion is seen wi thin the insular cortex Remote injury of the left cerebellar hemisphere with encephalomalacia. The pinto-white junctions, ventricular system, basal cisterns appear unremarkable. Scattered foci an d confluent areas of of high T2 signal intensity are seen within the periventricular white matter. Mi dline structures show no abnormality. The susceptibility weighted images do not reveal any evidence f or micro-hemorrhage. The bone marrow signal is within normal limits. Paranasal sinuses and mastoid air cells: No significant paranasal sinus disease. Visualized orbits: Orbital contents are intact. IMPRESSION: 1. Scattered acute/subacute CVA involving the right MCA territory predominantly involving scattered a reas in the right parietal lobe and right insular cortex. 2. Nonspecific white matter changes, likely secondary to small vessel ischemic disease. 3. Remote left cerebellar hemisphere injury with encephalomalacia. [facility], , 04/16/2024 10:58 AM
[2024-04-16] MEDS: NICOTINE 21MG/24HR PATCH TRANSDERM SCH (11:02)
[2024-04-16] MEDS: LIDOCAINE 4% PATCH TOPICAL SCH (14:02)
--- NOTE | 2024-04-16 17:23 | P.PN ---
Subjective 73-year-old pleasant female came in with complaints of tingling and numbness in the left hand as well as weakness in the left hand and patient says she is weak in the left leg as well although she has 5/5 strength in the left leg but is h aving trouble walking. The symptoms started yesterday 6 PM tingling numbness is on and off because of which patient did not seek any medical attention came to ER today. Patient had a CT of the head which did not show any acute abnormalities CT angio of the head and neck showed some critical stenosis in one of the vertebral arteries. Patient also fell last night and complaining of significant pain chest x-ray did not show any rib fractures will obtain a dedicated rib x-ray. Subjective: 04/16/2024: Patient seen at bedside. No significant overnight events. Patient reports the strength in her left hand is significantly improved from yesterday. No other complaints. Pertinent positives and negatives discussed above, a complete review of systems was preformed and all the other sytems were negative. Vitals Signs Reveiwed. GENERAL: The patient is alert and oriented x3, not in any acute distress. Well developed, well nourished. HEENT: Pupils are round and equally reacting to light. EOMI. No scleral icterus. No conjunctival pallor. Normocephalic, atraumatic. No pharyngeal erythema. No thyromegaly. CARDIOVASCULAR: S1 and S2 present. No murmurs, rubs, or gallops. PULMONARY: Chest is clear to auscultation, no wheezing or crackles. ABDOMEN: Soft, nontender, nondistended, normoactive bowel sounds. No palpable organomegaly. MUSCULOSKELETAL: No joint swelling or deformity. EXTREMITIES: No cyanosis, clubbing, or pedal edema. 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 Data Reveiwed Today: Patient Labs: [] Imaging: Echo showed EF 55 to 60%, grade 1 diastolic dysfunction, normal left ventricular function, mild mitral and aortic regurgitation. Brain MRI showed scattered acute/subacute CVA involving the right MCA territory predominantly involving scattered areas in the right parietal lobe and right insular cortex. Also showed nonspecific white matter changes, and remote left cerebellar hemisphere injury with encephalomalacia. Assessment and plan Possible cerebrovascular accident: Neurology will evaluate the patient, physical therapy Occupational Therapy evaluation. Patient will be discharged tomorrow after clearance from neurology and PT. -Severe rib pain showed fracture of the sixth rib left lateral will use Toradol and morphine for pain along with GI prophylaxis, added lidocaine 4% patch for rib pain Patient will likely be discharged on dual antiplatelet therapy, has tried many statins in the past and always has reactions including lower extremity weakness and pain. -Anxiety/depression resume her on her home meds DVT prophylaxis: Lovenox F none E none N regular diet A normally ambulates unassisted DVT ppx: Lovenox GI ppx: Protonix 40 mg p.o. daily Code Status: Full code Anticipated discharge place: Pending clinical course Anticipated discharge time: Pending clinical course Objective - Vital Signs Vital signs: Vital Signs Temp 97.8 F 04/16/24 04:00 Pulse 71 04/16/24 04:00 Resp 14 04/16/24 04:00 BP 163/72 04/16/24 04:00 Pulse Ox 93 L 04/16/24 04:00 FiO2 Intake & Output 04/15/24 04/16/24 04/16/24 18:59 06:59 18:59 Weight 68.039 kg 68.039 kg Other: # Voids 1 - Labs CBC & Chem 7: 04/15/24 09:53 04/15/24 09:53 Labs: Abnormal Lab Results - Last 24 Hours (Table) 04/15/24 04/15/24 04/15/24 Range/Units 09:33 09:49 09:53 WBC 11.0 H (3.8-10.6) k/uL Glucose (74-99) mg/dL POC Glucose (mg/dL) 130 H (70-110) mg/dL Hemoglobin A1c 6.3 H (<=6.0) % Triglycerides (0.00-149.00) mg/dL Cholesterol (0.00-200.00) mg/dL LDL Cholesterol, Calc (0.0-131.0) mg/dL VLDL Cholesterol, Calc (5.00-40.00) mg/dL 04/15/24 04/16/24 Range/Units 09:53 06:05 WBC (3.8-10.6) k/uL Glucose 124 H (74-99) mg/dL POC Glucose (mg/dL) (70-110) mg/dL Hemoglobin A1c (<=6.0) % Triglycerides 201.00 H (0.00-149.00) mg/dL Cholesterol 301.00 H (0.00-200.00) mg/dL LDL Cholesterol, Calc 212.3 H (0.0-131.0) mg/dL VLDL Cholesterol, Calc 40.20 H (5.00-40.00) mg/dL
[2024-04-17] MEDS: PANTOPRAZOLE 40 MG TABLET PO SCH (06:20)
[2024-04-17 07:09] VITALS: RESP 16
[2024-04-17] MEDS ORDERED: ASPIRIN 81 MG PO SCH (09:00)
--- NOTE | 2024-04-17 10:16 | P.PN ---
Subjective Progress Note Date: 04/16/24 Patient was seen for a follow-up. Patient is laying in the bed. Patient's daughter was also present. Patient is still weak on the left side but is getting better. Her hip pain is getting better. No new focal symptoms. No headache. Objective - Vital Signs Vital signs: Vital Signs Temp 99.3 F 04/16/24 16:00 Pulse 74 04/16/24 16:00 Resp 18 04/16/24 16:00 BP 148/79 04/16/24 16:00 Pulse Ox 95 04/16/24 16:00 FiO2 Intake & Output 04/16/24 04/16/24 04/17/24 06:59 18:59 06:59 Intake Total 360 Balance 360 Weight 68.039 kg Intake: Oral 360 Other: # Voids 1 1 - Exam Mental status, speech and language functions are normal. Cranial nerves are normal. Patient has mild left pronator drift only about 15 degree. Strength is normal. Patient has ataxia of the left upper extremity, but no more ataxia in the left lower extremity. Sensory to touch is equal. - Labs CBC & Chem 7: 04/15/24 09:53 04/15/24 09:53 Labs: Abnormal Lab Results - Last 24 Hours (Table) 04/15/24 04/16/24 Range/Units 09:33 06:05 Hemoglobin A1c 6.3 H (<=6.0) % Triglycerides 201.00 H (0.00-149.00) mg/dL Cholesterol 301.00 H (0.00-200.00) mg/dL LDL Cholesterol, Calc 212.3 H (0.0-131.0) mg/dL VLDL Cholesterol, Calc 40.20 H (5.00-40.00) mg/dL Assessment and Plan Assessment: * Acute ischemic stroke, manifesting with mild ataxic left hemiparesis. Current NIH stroke scale is 2. 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 * Hypertension * Hyperlipidemia * Tobacco use * Essential tremors involving voice and head. Plan: * Patient symptoms are improving. She has improved left pronator drift, and less ataxia on the left upper extremity. * MRI of the brain without contrast, revealed scattered acute/subacute CVA involving the right MCA territory predominantly involving scattered areas in the right parietal lobe and right insular cortex. Nonspecific white matter changes, likely secondary to small vessel ischemic disease. Remote left cerebellar hemisphere injury with encephalomalacia. I personally reviewed MRI agree with the findings. * 2-D echo revealed normal left ventricular size and systolic function with EF 55 to 60%. No obvious regional wall motion abnormalities. Mildly increased posterior wall thickness. Normal right atrial size. Negative agitated saline bubble study for ojyyr-js-hskt shunt. Mildly increased left atrial volume. Aortic valve sclerosis. * CTA head and neck showed: No evidence of dissection of the cervical internal carotid arteries or any evidence of significant stenosis at the carotid bifurcation. Probable high-grade stenosis of the V1 segment of the left vertebral artery. Remaining portions of the left vertebral arteries are patent. 6 mm enhancing nidus within the region of the A3 segment of the anterior cerebral arteries, suspicious for AVM. Retrospectively, not significant change from prior MRI from 2017. No evidence of high-grade stenosis. * Recommend patient follow-up with neurointervention outpatient for possible AVM. * Fasting a.m. lipid panel with cholesterol 301, LDL 212, HDL 40 and triglycerides 201. Patient states that she has tried all statins, and produce significant side effects. She states that she could not walk without muscles hurting from statins. Recommend patient discuss with primary physician to try alternate medications then statins. * Hemoglobin A1c 6.3, consistent with prediabetes. Recommend healthy lifestyles, physical exercises and dietary adjustment. * Optimize control of blood pressure. * Patient was not taking any antiplatelet medication at home. Patient given loading dose of aspirin 324 mg in the ER. Patient has intracranial atherosclerotic disease. Recommend continuing aspirin 81 mg and Plavix 75 mg daily. * Neuro checks every 2 hours. * Telemetry monitoring rule out any arrhythmia PT, OT, speech therapy * DVT prophylaxis: Lovenox 40 mg subcu daily * Recommend complete tobacco cessation. * Consider inpatient rehab, if indicated by PT OT * Discussed with patient's daughter in detail.
[2024-04-17 11:11] VITALS: BP 171/71; PULSE 76; TEMP 98.3
--- NOTE | 2024-04-17 14:13 | P.DS ---
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 The symptoms started yesterday 6 PM tingling numbness is on and off because of which patient did not seek any medical attention came to ER today. Patient had a CT of the head which did not show any acute abnormalities CT angio of the head and neck showed some critical stenosis in one of the vertebral arteries. Patient also fell last night and complaining of significant pain chest x-ray did not show any rib fractures will obtain a dedicated rib x-ray. Subjective: 04/16/2024: Patient seen at bedside. No significant overnight events. Patient reports the strength in her left hand is significantly improved from yesterday. No other complaints. Pertinent positives and negatives discussed above, a complete review of systems was preformed and all the other sytems were negative. Vitals Signs Reveiwed. While admitted to the hospital patient received a brain MRI showing scattered acute/subacute CVA involving the right MCA territory predominantly involving scattered areas in the right parietal lobe and right insular cortex. While admitted the patient was seen by neurology who recommended dual antiplatelet therapy indefinitely instead of the normal 3 weeks due to the patient being intolerable to statins in the past. Due to this neurology supported the plan of the patient taking dual antiplatelet therapy indefinitely until they followed up outpatient with their PCP and neurologist. Patient was also found to have elevated blood pressure while admitted and will be started on losartan 25 mg daily and amlodipine 10 mg daily on discharge. Other discharge medications include Plavix 75 mg daily and aspirin 81 mg daily. The patient was in agreement with trying a very low dose simvastatin 5 mg even with her history of lower extremity weakness and muscle pain when taking statins. Patient reports that she has tried many different statins including different formulations such as powdered forms or injections. Patient is advised to consider following up with an tromper who specializes in dyslipidemias in regards to her difficulties with statin use. Patient is hemodynamically medically stable for discharge to home with home health services. Patient is advised to follow-up with her PCP and neurologist after discharge. Pt seen and examined at bedside: Patient seated comfortably in bed excited at the prospect of going home Vital signs reveiwed and stable: General: non toxic, no distress, appears at stated age, normal weight Derm: no unusual rashes/lesions, warm Head: atraumatic, normocephalic, symmetric Eyes: EOMI, no lid lag, anicteric sclera, pupils equal round reactive to light ENT: Nose and ears atraumatic Neck: No cervical lymphadenopathy, trachea midline, supple Mouth: no lip lesion, mucus membranes moist Cardiovascular: S1S2 reg, no murmur, positive dorsalis pedis pulse bilateral, no edema Lungs: Decreased air entry bilaterally, no rhonchi, no rales, no accessory muscle use Abdominal: soft, nontender to palpation, no guarding Ext: muscle strength 5 out of 5 in all 4 extremities grossly except for left upper extremity which is 4 out of 5 strength in the hand, no gross muscle atrophy, no contractures, Neuro: CN II-XI grossly intact, no gross focal neuro deficits Psych: Alert, oriented, appropriate affect A total of greater than 30 minutes were spent preparing this complex discarge summary. Patient was discharged on 04/17/2024, 14: 05. Attestation I have seen and examined this patient with my resident , discussed the same with the resident/GIULIANO, and agree with the dictator's assessment and plan as written Dr. Darell almaraz Patient Condition at Discharge: Fair Plan - Discharge Summary New Discharge Prescriptions: New Clopidogrel [Plavix] 75 mg PO DAILY #60 tab amLODIPine [Norvasc] 10 mg PO DAILY #60 tab Celecoxib [CeleBREX] 100 mg PO BID 10 Days #20 cap Aspirin 81 mg PO DAILY #60 tab Simvastatin 5 mg PO DAILY #30 tablet Losartan [Cozaar] 25 mg PO DAILY #60 tab HYDROcodone/APAP 5-325MG [[place] 5-325] 1 tab PO Q6HR PRN 3 Days #12 tab PRN Reason: Analgesia Continue Venlafaxine HCl ER [Effexor XR] 75 mg PO DAILY 30 Days cap.er.24h clonazePAM [KlonoPIN] 0.5 mg PO DAILY 30 Days tab Discontinued Multivit-Min/Iron/Folic/Lutein [Centrum Silver Women Tablet] 1 tab PO DAILY Discharge Medication List Venlafaxine HCl ER [Effexor XR] 75 mg PO DAILY 30 Days cap.er.24h 10/28/19 [Rx] clonazePAM [KlonoPIN] 0.5 mg PO DAILY 30 Days tab 10/28/19 [Rx] Celecoxib [CeleBREX] 100 mg PO BID 10 Days #20 cap 04/16/24 [Rx] Aspirin 81 mg PO DAILY #60 tab 04/17/24 [Rx] Clopidogrel [Plavix] 75 mg PO DAILY #60 tab 04/17/24 [Rx] HYDROcodone/APAP 5-325MG [[place] 5-325] 1 tab PO Q6HR PRN 3 Days #12 tab 04/17/24 [Rx] Losartan [Cozaar] 25 mg PO DAILY #60 tab 04/17/24 [Rx] Simvastatin 5 mg PO DAILY #30 tablet 04/17/24 [Rx] amLODIPine [Norvasc] 10 mg PO DAILY #60 tab 04/17/24 [Rx] Follow up Appointment(s)/Referral(s): Diomedes Stokes DO [Primary Care Provider] - 04/22/24 9:00 am Yuliya Dooley MD [STAFF PHYSICIAN] - 1 Week (Daughter will call to make appointment) [facility] Visiting Nurse, [NON-STAFF] - Patient Instructions/Handouts: Ischemic Stroke (DC) Discharge Disposition: HOME WITH HOME HEALTH SERVICES
--- NOTE | 2024-04-19 10:44 | P.PN ---
Subjective Progress Note Date: 04/17/24 Patient was seen for a follow-up. Patient is sitting in the bed, ready for discharge. Patient's daughter was also present. Patient is still weak on the left side but is getting better. Her left-sided rib pain is getting better. No new focal symptoms. No headache. Objective - Vital Signs Vital signs: Vital Signs Temp 98.3 F 04/17/24 11:00 Pulse 76 04/17/24 11:00 Resp 16 04/17/24 11:00 BP 171/71 04/17/24 11:00 Pulse Ox 95 04/17/24 11:00 FiO2 Intake & Output 04/16/24 04/17/24 04/17/24 18:59 06:59 18:59 Intake Total 360 236 Balance 360 236 Weight 66.8 kg Intake: Oral 360 236 Other: # Voids 1 3 1 - Exam Mental status, speech and language functions are normal. Cranial nerves are normal. Patient has left sided pronation without drift. Strength is normal, except left gang investigator, which is 5-. Patient has mild ataxia of the left upper extremity, better than yesterday. However there is no more ataxia in the left lower extremity. Sensory to touch is equal. - Labs CBC & Chem 7: 04/15/24 09:53 04/15/24 09:53 Assessment and Plan Assessment: * Acute ischemic stroke, manifesting with mild ataxic left hemiparesis. Current NIH stroke scale is 2. 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 * Hypertension * Hyperlipidemia * Tobacco use * Essential tremors involving voice and head. Plan: * Patient symptoms are improving, even better as compared to yesterday. She has improved left pronator drift, and less ataxia on the left upper extremity. * MRI of the brain without contrast, revealed scattered acute/subacute CVA involving the right MCA territory predominantly involving scattered areas in the right parietal lobe and right insular cortex. Nonspecific white matter changes, likely secondary to small vessel ischemic disease. Remote left cerebellar hemisphere injury with encephalomalacia. I personally reviewed MRI agree with the findings. * 2-D echo revealed normal left ventricular size and systolic function with EF 55 to 60%. No obvious regional wall motion abnormalities. Mildly increased posterior wall thickness. Normal right atrial size. Negative agitated saline bubble study for [id number] shunt. Mildly increased left atrial volume. Aortic valve sclerosis. * CTA head and neck showed: No evidence of dissection of the cervical internal carotid arteries or any evidence of significant stenosis at the carotid bifurcation. Probable high-grade stenosis of the V1 segment of the left vert ebral artery. Remaining portions of the left vertebral arteries are patent. 6 mm enhancing nidus within the region of the A3 segment of the anterior cerebral arteries, suspicious for AVM. Retrospectively, not significant change from prior MRI from 2017. No evidence of high-grade stenosis. * Recommend patient follow-up with neurointervention outpatient for possible AVM. * Fasting a.m. lipid panel with cholesterol 301, LDL 212, HDL 40 and triglycerides 201. Patient states that she has tried all statins, and produce significant side effects. She states that she could not walk without muscles hurting from statins. Recommend patient discuss with primary physician to try alternate medications then statins. * Hemoglobin A1c 6.3, consistent with prediabetes. Recommend healthy lifestyles, physical exercises and dietary adjustment. * Optimize control of blood pressure. * Patient was not taking any antiplatelet medication at home. Patient given loading dose of aspirin 324 mg in the ER. Patient has intracranial atherosclerotic disease. Recommend continuing aspirin 81 mg and Plavix 75 mg daily. * Neuro checks every 2 hours. * Telemetry monitoring rule out any arrhythmia PT, OT, speech therapy * DVT prophylaxis: Lovenox 40 mg subcu daily * Recommend complete tobacco cessation. * Neurologically clear for discharge. Patient going home with home care therapy.
== END 2024-04-17 15:28 | disposition home health service (06) | DRG 65 ==
LOC: EC 09:17 → 3SCARD 11:59
PROVIDERS: ADMIT Internal Medicine; ATTEND Internal Medicine
DX: I63.511 Cerebral infarction due to unspecified occlusion or stenosis of right middle cerebral artery (principal); G81.94 Hemiplegia, unspecified affecting left nondominant side; S22.32XA Fracture of one rib, left side, initial encounter for closed fracture; I65.02 Occlusion and stenosis of left vertebral artery; G93.89 Other specified disorders of brain; F41.9 Anxiety disorder, unspecified; F32.A Depression, unspecified; W06.XXXA Fall from bed, initial encounter; J44.9 Chronic obstructive pulmonary disease, unspecified; I10 Essential (primary) hypertension; E78.5 Hyperlipidemia, unspecified; F17.210 Nicotine dependence, cigarettes, uncomplicated; G25.0 Essential tremor; I08.0 Rheumatic disorders of both mitral and aortic valves; R29.703 NIHSS score 3; Q82.5 Congenital non-neoplastic nevus; Y92.003 Bedroom of unspecified non-institutional (private) residence as the place of occurrence of the external cause; Y99.8 Other external cause status; Z79.02 Long term (current) use of antithrombotics/antiplatelets; Z79.82 Long term (current) use of aspirin; Z79.899 Other long term (current) drug therapy; Z86.73 Personal history of transient ischemic attack (TIA), and cerebral infarction without residual deficits; Z80.7 Family history of other malignant neoplasms of lymphoid, hematopoietic and related tissues
CPT/HCPCS: 36415; 70450; 70496; 70498; 70551; 71046; 80053; 80061; 82550; 83036; 84484; 85025; 85610; 85730; 93005; 93306; 96372; 96374; 96375; 96376; 99291

== ENCOUNTER → 2024-09-30 | Outpatient (CLI) | payer MEDICARE ==
--- NOTE | 2024-09-30 14:47 | MM ---
Reason for Exam: Screening (asymptomatic). Last mammogram was performed 1 year(s) and 1 month(s) ago. Patient History: Menarche at age 12. First Full-Term at age 19. Postmenopausal. Other cancer. Risk Values: Rhonda 5 year model risk: 1.4%. NCI Lifetime model risk: 2.9%. Prior Study Comparison: 08/10/2021 Bilateral Screening Mammogram, [facility]. 08/23/2022 Bilateral MG 3D screening mammo w/cad, [facility]. 08/27/2023 Bilateral MG 3D screening mammo w/cad, [facility]. Tissue Density: There are scattered areas of fibroglandular density. Findings: Analyzed By CAD. Large skin lesions bilaterally are redemonstrated. There is no suspicious new group of microcalcifications or new suspicious mass in either breast. Overall Assessment: Negative, BI-RAD 1 Management: Screening Mammogram of both breasts in 1 year. . Patient should continue monthly self-breast exams. A clinical breast exam by your physician is recommended on an annual basis. This exam should not preclude additional follow-up of suspicious palpable abnormalities. Note on Rhonda scores and lifetime risk: 1. A Rhonda score greater than 3% is considered moderate risk. If this is the case, consider specialist referral to assess eligibility for a risk reducing agent. 2. If overall lifetime risk for the development of breast cancer is 20% or higher, the patient may qualify for future screening with alternating mammogram and breast MRI. [facility], , 09/30/2024 2:44 PM. Electronically signed and approved by: Kenn Ring M.D.
== END | disposition home or self-care (01) ==
LOC: RADMAMWWP 13:59
PROVIDERS: ATTEND Family Medicine
DX: Z12.31 Encounter for screening mammogram for malignant neoplasm of breast (principal); R92.323 Mammographic fibroglandular density, bilateral breasts; Z78.0 Asymptomatic menopausal state
CPT/HCPCS: 77063; 77067

== ENCOUNTER → 2024-10-29 | Day surgery (SDC) | payer MEDICARE ==
[~2024-10-29] MED LIST: SODIUM CHLORIDE 0.9% 1,000 ML IV SCH
[2024-10-29 07:57] VITALS: BP 147/65; PULSE 76; RESP 16; TEMP 98.5
[2024-10-29] MEDS: IV FLUID CONTINUATION 500 ML IV ONE (09:06)
[2024-10-29] MEDS: ceFAZolin 2 GM in DEXTROSE 5% IN WATER 50 ML IVPB ONE (09:08)
[2024-10-29] MEDS: LIDOCAINE 1% INJ 10MG/ML (20 ML MDV) SQ ONE (09:31)
--- NOTE | 2024-10-29 21:15 | CE ---
CARDIAC ELECTROPHYSIOLOGY REPORT PROCEDURE: Loop recorder insertion report. INDICATION: Cryptogenic stroke. This patient was seen and evaluated by Dr. Martinez, who advised a loop recorder in view of her cryptogenic stroke with other risk factors including hypertension and hyperlipidemia. Event monitor was unremarkable and therefore, she was advised a loop recorder in view of the fact the patient had history of a cryptogenic stroke. Risks, benefits, and options were already explained in detail to the patient. PROCEDURE NOTE: Under strict aseptic precautions and local anesthesia with lidocaine in the left 4th intercostal space, a small stab incision was made. The plunger loaded with the device was advanced into the 4th intercostal space all the way in and then the plunger was withdrawn, the device fell down into the slot, and then the device was advanced with the plunger into the 4th intercostal space uneventfully. Location was excellent. Hemostasis was good. A single suture was applied. The R-wave amplitude was 0.73 mV. The patient tolerated the procedure well without complication. The loop recorder was set for a cryptogenic stroke protocol. Details were discussed with the patient and family. She will be discharged later today and will see Dr. Martinez in 1 week. The patient received antibiotic infusion at the beginning of the procedure as per protocol and the duration of the procedure was about 10 minutes. MMODL / IJN: [id number] /
== END ==
LOC: CATHEP 07:30
PROVIDERS: ATTEND Internal Medicine Interventional Cardiology
DX: Z86.73 Personal history of transient ischemic attack (TIA), and cerebral infarction without residual deficits (principal); I10 Essential (primary) hypertension; F17.200 Nicotine dependence, unspecified, uncomplicated; E78.5 Hyperlipidemia, unspecified; Z82.49 Family history of ischemic heart disease and other diseases of the circulatory system; Z88.8 Allergy status to other drugs, medicaments and biological substances; Z79.899 Other long term (current) drug therapy
CPT/HCPCS: 33285; C1764; J0690; J2003